=== PATIENT | female | born 1970 | race Caucasian/White ===

== ENCOUNTER 2024-02-02 19:20 | Emergency (ER) | payer MEDICAID, SELFPAY ==
[2024-02-02 19:21] VITALS: BP 138/82; PULSE 102; PULSE 104; RESP 16; RESP 21; TEMP 37.7; O2SAT 96; O2SAT 98; BMI 24.5; BMI 25.8
--- NOTE | 2024-02-02 19:24 | EKG_ITS ---
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
--- NOTE | 2024-02-02 20:01 | EDNOTE_ITS ---
ED Neck Injury Pain RME/HPI General Chief Complaint: Neck Pain/Injury Stated Complaint: LEFT SIDED NECK/SHOULDER PAIN Time Seen by Provider: 02/02/24 19:45 Arrival date/time: 02/02/24 19:20 53F with history of CAD, seizures, anxiety, RA/OA, afib, and COPD presents to ED with several days of L neck/shoulder pain after she was carrying her new at home O2 tank on her shoulder. Patient denies fall/trauma, CP, SOB, cough, weakness, dizziness, and fevers/chills. Limitations: no limitations Related Data Home Medications ?Medication ?Instructions ?Recorded ?Confirmed tiotropium bromide 18 mcg capsule 18 mcg inhalation QDAY 02/22/18 07/18/20 with inhalation device (Spiriva with HandiHaler) albuterol sulfate 2.5 mg/3 mL 2.5 mg inhalation Q12H PRN sob 07/18/20 07/18/20 (0.083 %) solution for nebulization albuterol sulfate 90 mcg/actuation 2 puff inhalation Q6H PRN sob 07/18/20 07/18/20 aerosol inhaler (Ventolin HFA) amitriptyline 150 mg tablet 150 mg PO BID 07/18/20 07/18/20 beclomethasone dipropionate 40 1 inh inhalation QDAY 07/18/20 07/18/20 mcg/actuation HFA breath activated aerosol (Qvar RediHaler) sxmraouxjg-xpsqbzpacesnl-syjhujwu 1 tab PO QDAY 07/18/20 07/18/20 50 mg-325 mg-40 mg tablet gabapentin 300 mg capsule 300 mg PO TID 07/18/20 07/18/20 levetiracetam 750 mg tablet 1,500 mg PO BID 07/18/20 07/18/20 loratadine 10 mg tablet (Allergy 10 mg PO QDAY 07/18/20 07/18/20 Relief (loratadine)) naproxen 500 mg tablet 500 mg PO QDAY PRN Pain 07/18/20 07/18/20 nicotine 21 mg/24 hr daily 21 mg topical QDAY 07/18/20 07/18/20 transdermal patch pantoprazole 40 mg tablet,delayed 40 mg PO BID 07/18/20 07/18/20 release pregabalin 75 mg capsule 75 mg PO TID 07/18/20 07/18/20 Previous Rx's ?Medication ?Instructions ?Recorded hydrocodone 5 mg-acetaminophen 325 0.5 tab PO BID #10 tabs 11/16/21 mg tablet famotidine 20 mg tablet (Pepcid) 20 mg PO QDAY #7 tabs 06/24/22 bacitracin 500 unit/gram topical 1 applic topical Q8H #14 grams 12/28/22 ointment acetaminophen 325 mg tablet (Pain 650 mg (2 x 325 mg) PO QID PRN 02/19/23 Relief (acetaminophen)) pain #20 tabs acetaminophen 500 mg tablet 500 mg PO Q6H PRN pain #30 tabs 04/19/23 (Acetaminophen Pain Relief) Allergies Allergy/AdvReac Type Severity Reaction Status Date / Time adhesive Allergy Severe Rash Verified 02/19/23 13:03 aspirin Allergy Severe Nausea Verified 04/19/23 14:12 clindamycin Allergy Severe VOMITING Verified 02/19/23 13:03 ketorolac [From Toradol] Allergy Severe Seizure Verified 04/19/23 14:12 Penicillins Allergy Severe SZ'S Verified 04/19/23 14:12 Sulfa (Sulfonamide Allergy Severe SZ Verified 02/19/23 13:03 Antibiotics) codeine AdvReac Severe VOMITING Verified 04/19/23 14:12 lorazepam AdvReac Severe SEIZURE Verified 02/19/23 13:03 sertraline AdvReac Severe SEIZURES Verified 02/19/23 13:03 Review of Systems Review of Systems Systems Reviewed: All systems reviewed, normal except as documented Constitutional Constitutional: Reports system reviewed and no additional complaints, except as documented, Denies fever(s) and Denies headache(s) ENT Ears, Nose, Mouth, and Throat: Denies disequilibrium, Denies headache(s) and Reports neck pain Cardiovascular Cardiovascular: Reports system reviewed and no additional complaints, except as documented, Denies chest pain and Denies dyspnea Respiratory Respiratory: Reports system reviewed and no additional complaints, except as documented, Denies cough and Denies dyspnea Gastrointestinal Gastrointestinal: Reports system reviewed and no additional complaints, except as documented, Denies abdominal pain, Denies nausea and Denies vomiting Musculoskeletal Musculoskeletal: Reports as per HPI, Reports arthralgias and Reports neck pain Neurologic Neurologic: Reports system reviewed and no additional complaints, except as documented, Denies confusion, Denies disequilibrium and Denies headache(s) Psychiatric Psychiatric: Denies confusion Past Medical History Past Medical History NEUROLOGIC: Positive Neurological Disorders, Seizures, Head Trauma and Traumatic Brain Injury CARDIAC: Positive Cardiac Disorders, Myocardial Infarction and Atrial Fibrillation; Negative Congestive Heart Failure RESPIRATORY: Positive Chronic Obstructive Pulmonary Disease (COPD), Asthma and Emphysema GASTROINTESTINAL: Positive Gastrointestinal Disorders, Gastrointestinal Bleed and Hiatal Hernia GENITOURINARY: Negative Renal Disease MUSCULOSKELETAL: Positive Musculoskeletal Disorders ENT: Positive Head Trauma ENDOCRINE: Negative Diabetes Mellitus Type 1 or Diabetes Mellitus Type 2 HEMATOLOGIC: Negative Sickle Cell Disease PSYCHO/SOCIAL: Positive Anxiety Social History SMOKING STATUS: Current some day smoker SUBSTANCE USE: does not use ED Exam General Limitations: Present no limitations General appearance: Present alert and in no apparent distress Head Head exam: Present atraumatic Eye Eye exam: Present normal appearance, PERRL and EOMI ENT ENT exam: Present normal exam, normal oropharynx and mucous membranes moist Neck Neck exam: Present normal inspection, full ROM and trachea midline Chest Chest inspection: Present normal inspection and symmetric chest wall rise Respiratory Respiratory exam: Present normal lung sounds bilaterally Cardiovascular Cardiovascular exam: Present regular rate, normal rhythm and normal heart sounds Abdominal Exam Abdominal exam: Present soft and normal bowel sounds Extremities Exam Extremities exam: Present normal inspection and full ROM Back Exam Back exam: Present normal inspection and full ROM Neurological Exam Neurological exam: Present alert, oriented X3 and CN II-XII intact Psychiatric Psychiatric exam: Present normal affect and normal mood Skin Skin exam: Present warm, dry, intact and normal color Course Quality Measures none Orders Category Date Time Status EKG (ED ONLY) *Do not use* NOW Care 02/02/24 19:24 Completed EKG (ED Only) Stat Exams 02/02/24 19:24 Draft HYDROcodone*/APAP 7.5/325 [[place] 7.5/325] Med 02/02/24 19:47 Discontinued 1 tab PO X1 ONE Vital Signs Vital signs: Vital Signs Temperature 99.8 F 02/02/24 19:21 Pulse Rate 102 H 02/02/24 19:21 Respiratory Rate 16 02/02/24 19:21 Blood Pressure 138/82 H 02/02/24 19:21 Pulse Oximetry (%) 98 02/02/24 19:21 Oxygen Delivery Method Room Air 02/02/24 19:21 O2 at 98% on RA and WNLs Neck Pain MDM Narrative MDM Narrative:: 53F with history of CAD, seizures, anxiety, RA/OA, afib, and COPD presents to ED with several days of L neck/shoulder pain after she was carrying her new at home O2 tank on her shoulder. Patient denies fall/trauma, CP, SOB, cough, weakness, dizziness, and fevers/chills. Physical exam reveals no L shoulder/neck tenderness. ROM intact, but painful. Clear ENT and lungs. RRR. Patient is afebrile, calm, and alert. EKG is NSR. Likely MSK-related. Meds and director counseling bureau given. Patient data External records reviewed:: [facility] previous records Clinical information provided by:: patient Social determinants that could affect healthcare access:: mental health Patient has the following chronic illnesses:: CAD, seizures, anxiety, RA/OA, afib, and COPD How is presenting disease/condition affected by chronic disease/condition?: exacerbated by Evaluation data The following diagnostics were reviewed and interpreted by me:: EKG tracing(s) Lab and/or radiology exams considered but not ordered:: ordered Interpretation Summary: above Medications / Prescriptions Medications or Prescriptions considered but not ordered:: ordered Medication administrations:: Medication Administration History Discontinued Medications Hydrocodone Bitart/Acetaminophen (Hydrocodone/Apap 7.5/325 Tablet) 1 tab PO X1 ONE Stop: 02/02/24 19:48 Last Admin: 02/02/24 20:07 Dose: 1 tab Documented By: above Consultations Consultation(s) initiated? (list below): No Diagnosis Neck Differential Diagnosis: disc disorder of cervical region, whiplash injury to neck, closed subluxation of cervical spine, fracture of cervical spine without lesion of spinal cord, cervical radiculopathy, vertebral artery dissection, torticollis, cervical spondylosis, strain of neck muscle and other (joint pain ) Most likely diagnosis given after review of the tests above:: joint pain Admission Indicated Admission indicated?: not indicated Admission Request Was there a request for admission?: No Disposition Plan Disposition Plan: Discharge Discharge Attestation Discharge Attestation: The patient and all family members were given an opportunity to ask questions and understood the discharge instructions. Discharge instructions specifically effects, indications for sooner follow up or return to the emergency department, and the expected course of current diagnosis. Patient condition: Stable Discharge Plan Plan Patient Disposition: HOME (Self Care) Disposition Comment: Stable Prescriptions/Referrals Prescriptions/Med Rec: No Action Spiriva with HandiHaler 18 mcg Capsule, W/Inhalation Device 18 mcg INHALATION QDAY albuterol sulfate 2.5 mg /3 mL (0.083 %) solution for nebulization 2.5 mg inhalation Q12H PRN (Reason: sob) amitriptyline 150 mg tablet 150 mg PO BID tzklofhybd-mtlpdcawzlxpt-qrtm 50-325-40 mg tablet 1 tab PO QDAY pantoprazole 40 mg tablet,delayed release (DR/EC) 40 mg PO BID nicotine 21 mg/24 hr patch 24 hour 21 mg TOPICAL QDAY gabapentin 300 mg capsule 300 mg PO TID levetiracetam 750 mg tablet 1,500 mg PO BID albuterol sulfate [Ventolin HFA] 90 mcg/actuation Hfa Aerosol Inhaler 2 puff INHALATION Q6H PRN (Reason: sob) loratadine [Allergy Relief (loratadine)] 10 mg tablet 10 mg PO QDAY naproxen 500 mg tablet 500 mg PO QDAY PRN (Reason: Pain) pregabalin 75 mg capsule 75 mg PO TID Qvar RediHaler 40 mcg/actuation HFA aerosol breath activated 1 inh inhalation QDAY famotidine [Pepcid] 20 mg tablet 20 mg PO QDAY Qty: 7 0RF bacitracin 500 unit/gram ointment 1 applic topical Q8H Qty: 14 0RF hydrocodone-acetaminophen 5-325 mg tablet 0.5 tab PO BID MDD 1 Qty: 10 0RF acetaminophen [Pain Relief (acetaminophen)] 325 mg tablet 650 mg PO QID PRN (Reason: pain) Qty: 20 0RF acetaminophen [Acetaminophen Pain Relief] 500 mg tablet 500 mg PO Q6H PRN (Reason: pain) Qty: 30 0RF Problem List Clinical Impression: Joint pain Patient/Caregiver Discharge Instructions Education Materials: ED Arthralgia, ED RICE Additional Instructions: Please follow-up with PCP within 24-48 hours and return immediately if symptoms worsen. If problem persists, recommend outpatient PT and/or MRI follow-up. In the meantime, rest, use ice/heat, and/or compression. Print Language: Ukrainian Stand Alone Forms: Patient Portal Info Letter PA/LAWANDA Supervising Physician HIRO/LAWANDA Supervising Physician: Dr. Traore
[2024-02-02] MEDS: HYDROcodone/APAP 7.5/325 TABLET 1 TAB PO (20:07)
== END 2024-02-02 20:12 | disposition home or self-care (01) ==
LOC: SERX 20:16
PROVIDERS: Emergency Provider Emergency Medicine; PCP Nurse Practitioner
DX: M25.512 Pain in left shoulder (principal); I45.10 Unspecified right bundle-branch block
CPT/HCPCS: 93005; 99283; A9270

== ENCOUNTER 2024-03-01 09:48 | Emergency (ER) | payer MEDICAID, SELFPAY ==
[2024-03-01 09:51] VITALS: BP 146/78; PULSE 76; RESP 18; TEMP 37; O2SAT 98; BMI 24.4
[2024-03-01 09:54] VITALS: PULSE 72; RESP 20; O2SAT 94
--- NOTE | 2024-03-01 10:00 | XR_ITS ---
Examination: PA lateral chest 2 views TECHNIQUE: Upright PA lateral chest 2 views Exam date and time: March 01, 2024 1012 hours INDICATIONS: Chest pain numbness and paresthesias in the left arm today. FINDINGS: Normal heart size Lungs are clear. The osseous structures are intact IMPRESSION: No active disease
--- NOTE | 2024-03-01 10:00 | EKG_ITS ---
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
--- NOTE | 2024-03-01 10:23 | XR_ITS ---
Examination: CT brain head without contrast. 2-D sagittal coronal reconstructions Date and time of exam:March 01, 2024 at 1047 hours Comparison May 28, 2023 INDICATIONS: Onset severe head pain today CTDI: vol (mGy):46.9 DLP: (mGycm):957 Technique: Multiple CT axial sections of the brain have been obtained, 5 mm slice thickness. Contrast has not been administered. 2-D sagittal, coronal reconstructions have been obtained Low dose protocols were performed. One or more of the following dose reduction techniques were used; automated exposure control, adjustment of the mA and/or KV according to patient size, use of iterative reconstruction technique. Findings: No significant ventricular enlargement. Intra-axial or extra-axial hemorrhage density is not seen. No mass effect or midline shift Basal cisterns are not remarkable. Fourth ventricle is midline. Cranial vault intact. Impression: Negative for acute hemorrhage, mass effect or midline shift As clinically warranted, consider brain MRI follow-up
--- NOTE | 2024-03-01 10:23 | PD.EDRME ---
Rapid Medical Screening Exam RME Arrival date/time: 03/01/24 09:48 53-year-old female presents emergency department with complaint of headache, dizziness, chest pain Chief Complaint: Chest Pain Vital signs: Vital Signs Temperature 98.6 F 03/01/24 09:51 Pulse Rate 76 03/01/24 09:51 Respiratory Rate 18 03/01/24 09:51 Blood Pressure 146/78 H 03/01/24 09:51 Pulse Oximetry (%) 98 03/01/24 09:51 Oxygen Delivery Method Room Air 03/01/24 09:51
[2024-03-01 11:27] LABS: Basophils # (Auto) 0.1 Thou/mm3 (0.0-0.2); Basophils % (Auto) 1 % (0-2.5); Eosinophils # (Auto) 0.2 Thou/mm3 (0.0-0.5); Eosinophils % (Auto) 2 % (0-10); Hemoglobin 14.7 g/dL (12.0-16.0); Immature Granulocytes % (Auto) 0 % (0-0); Immature Granulocytes Auto 0.03 Thou/mm3 (0.00-0.00); Lymphocytes % (Auto) 39 % (10-50); Mean Corpuscular HGB Conc 34.2 g/dl (31.0-37.0); Mean Corpuscular Hemoglobin 30.5 pg (25.0-35.0); Mean Corpuscular Volume 89 fL (80-100); Monocytes # (Auto) 0.9 Thou/mm3 (0.0-0.8); Monocytes % (Auto) 8 % (0-12); Neutrophils # (Auto) 5.1 Thou/mm3 (1.8-7.7); Neutrophils % (Auto) 50 % (37-80); Nucleated Red Blood Cell % 0 /100 WBC (0); Platelet Count 275 Thou/mm3 (140-440); RDW Standard Deviation 42.9 fL (36.4-46.3); Red Blood Count 4.82 Miln/mm3 (4.00-5.20); White Blood Count 10.2 Thou/mm3 (3.6-11.0)
[2024-03-01 11:35] LABS: Partial Thromboplastin Time 25.8 Seconds (22.0-36.0); Prothrombin Time 10.8 Seconds (9.0-12.2)
[2024-03-01 11:40] LABS: B-Type Natriuretic Peptide 25 pg/mL (0-100)
[2024-03-01 11:43] LABS: Alanine Aminotransferase 14 U/L (10-49); Albumin, Serum 5.1 gm/dL (3.5-5.0); Albumin/Globulin Ratio 1.8 (1.2-2.2); Alkaline Phosphatase 103 U/L (46-116); Anion Gap 8 (7-16); Aspartate Amino Transferase 18 U/L (0-34); BUN/Creatinine Ratio 13 Ratio (12-20); Bilirubin,Total 0.4 mg/dL (0.3-1.2); Blood Urea Nitrogen 9 mg/dL (9-23); Chloride 106 mMol/L (98-107); Creatinine (Component) 0.7 mg/dL (0.6-1.3); Estimated Creatinine Clearance 92.5 mL/min (>60); Globulin 2.9 gm/dL (2.3-3.5); Glucose 100 mg/dL (74-106); Magnesium 1.8 mg/dL (1.6-2.6); Osmolality,Calculated 279 (275-295); Potassium 4.1 mMol/L (3.4-5.1); Sodium 141 mMol/L (136-145); Troponin I < 0.002 ng/mL (0.0-0.045); eGFR > 60 See Note
[2024-03-01 12:30] VITALS: BP 113/76; PULSE 53; RESP 16; TEMP 36.7; O2SAT 98
--- NOTE | 2024-03-01 12:40 | PD.EDCHEST ---
ED Chest Pain RME/HPI General Chief Complaint: Chest Pain Stated Complaint: chest pain , numbness/tingling left arm x1 day Time Seen by Provider: 03/01/24 12:30 Arrival date/time: 03/01/24 09:48 RME / HPI RME / HPI narrative: 53-year-old female patient with significant history of anxiety, came in for evaluation regarding left sided chest pain radiating to the left arm with numbness and tingling sensation, it happened yesterday, lasting for several minutes. Patient went to PCP, and was advised to come to emergency room to rule out ACS. According to the patient today there was no recurrence of symptoms. Patient is denying any headache denying any dizziness denies any complaints. Patient is ambulatory. Related Data Home Medications ?Medication ?Instructions ?Recorded ?Confirmed tiotropium bromide 18 mcg capsule 18 mcg inhalation QDAY 02/22/18 07/18/20 with inhalation device (Spiriva with HandiHaler) albuterol sulfate 2.5 mg/3 mL 2.5 mg inhalation Q12H PRN sob 07/18/20 07/18/20 (0.083 %) solution for nebulization albuterol sulfate 90 mcg/actuation 2 puff inhalation Q6H PRN sob 07/18/20 07/18/20 aerosol inhaler (Ventolin HFA) amitriptyline 150 mg tablet 150 mg PO BID 07/18/20 07/18/20 beclomethasone dipropionate 40 1 inh inhalation QDAY 07/18/20 07/18/20 mcg/actuation HFA breath activated aerosol (Qvar RediHaler) noyftgdrzd-evljhleavglnf-eyexbxmy 1 tab PO QDAY 07/18/20 07/18/20 50 mg-325 mg-40 mg tablet gabapentin 300 mg capsule 300 mg PO TID 07/18/20 07/18/20 levetiracetam 750 mg tablet 1,500 mg PO BID 07/18/20 07/18/20 loratadine 10 mg tablet (Allergy 10 mg PO QDAY 07/18/20 07/18/20 Relief (loratadine)) naproxen 500 mg tablet 500 mg PO QDAY PRN Pain 07/18/20 07/18/20 nicotine 21 mg/24 hr daily 21 mg topical QDAY 07/18/20 07/18/20 transdermal patch pantoprazole 40 mg tablet,delayed 40 mg PO BID 07/18/20 07/18/20 release pregabalin 75 mg capsule 75 mg PO TID 07/18/20 07/18/20 Previous Rx's ?Medication ?Instructions ?Recorded hydrocodone 5 mg-acetaminophen 325 0.5 tab PO BID #10 tabs 11/16/21 mg tablet famotidine 20 mg tablet (Pepcid) 20 mg PO QDAY #7 tabs 06/24/22 bacitracin 500 unit/gram topical 1 applic topical Q8H #14 grams 12/28/22 ointment acetaminophen 325 mg tablet (Pain 650 mg (2 x 325 mg) PO QID PRN 02/19/23 Relief (acetaminophen)) pain #20 tabs acetaminophen 500 mg tablet 500 mg PO Q6H PRN pain #30 tabs 04/19/23 (Acetaminophen Pain Relief) Allergies Allergy/AdvReac Type Severity Reaction Status Date / Time clindamycin Allergy Severe VOMITING Verified 03/01/24 09:51 Penicillins Allergy Severe SZ'S Verified 03/01/24 09:51 Sulfa (Sulfonamide Allergy Severe SZ Verified 03/01/24 09:51 Antibiotics) codeine AdvReac Severe VOMITING Verified 03/01/24 09:51 lorazepam AdvReac Severe SEIZURE Verified 03/01/24 09:51 sertraline AdvReac Severe SEIZURES Verified 03/01/24 09:51 Review of Systems Review of Systems Narrative Review of Systems: Review of system reviewed and within normal limits except mentioned in HPI ED Exam Narrative Physical exam: VITAL SIGNS: Reviewed. GENERAL APPEARANCE: Alert and interactive, follows commands, no acute distress, HEAD AND FACE: Non-traumatic. ENT: PERRL, pink conjunctivitis, eyelid no trauma, Mucous membrane moist. NECK: Supple, nontender, no nuchal rigidity. CHEST: No tenderness, no crepitus, no paradoxical movement, no retractions. LUNGS: Clear, well ventilated, symmetric, no rales, no wheezing, no ronchi, no stridor, good breath sounds bilaterally. HEART: Regular rate, regular rhythm, no murmur, no gallops. ABDOMEN: Soft, positive bowel sounds, nondistended, no guarding, nontender, no rebound, no masses, RECTAL: Deferred. GENITAL: Deferred. NEUROLOGICAL: Gross motor function intact sensory function intact, Appropriate for age. MUSCULOSKELETAL: low back nontender, full range of motion. EXTREMITIES: Nontender, full range of motion. SKIN: Color pink, dry, no rash, no lacerations, no abrasions, no contusions. LYMPHATICS: Deferred. Course Quality Measures none Orders Category Date Time Status EKG (ED ONLY) *Do not use* NOW Care 03/01/24 10:[address] head/brain wo con Stat Exams 03/01/24 10:23 Completed EKG (ED Only) Stat Exams 03/01/24 10:00 Draft XR chest 2V Stat Exams 03/01/24 10:00 Completed B-Type Natriuretic Peptide Stat Lab 03/01/24 10:58 Completed CBC Stat Lab 03/01/24 10:58 Completed Comprehensive Metabolic Panel Stat Lab 03/01/24 10:58 Completed Magnesium Stat Lab 03/01/24 10:58 Completed Partial Thromboplastin Time Stat Lab 03/01/24 10:58 Completed Prothrombin Time with INR Stat Lab 03/01/24 10:58 Completed Troponin I Stat Lab 03/01/24 10:58 Completed Vital Signs Vital signs: Vital Signs Temperature 98.6 F 03/01/24 09:51 Pulse Rate 76 03/01/24 09:51 Respiratory Rate 18 03/01/24 09:51 Blood Pressure 146/78 H 03/01/24 09:51 Pulse Oximetry (%) 98 03/01/24 09:51 Oxygen Delivery Method Room Air 03/01/24 09:51 Chest Pain MDM Narrative MDM Narrative:: 53-year-old female patient with significant history of anxiety, came in for evaluation regarding left sided chest pain radiating to the left arm with numbness and tingling sensation, it happened yesterday, lasting for several minutes. Patient went to PCP, and was advised to come to emergency room to rule out ACS. According to the patient today there was no recurrence of symptoms. Patient is denying any headache denying any dizziness denies any complaints. Patient is ambulatory. Patient's cardiac workup including troponin normal. EKG as interpreted by me showed sinus rhythm, ventricular rate of 64 bpm, no ST segment elevation or depression noted. CT scan of the head came back normal. Results discussed with the patient. There is no recurrence of patient's symptoms today. Repeat troponin or workup is not needed at this time. Patient is probably having anxiety-like symptoms. Patient data External records reviewed:: None Clinical information provided by:: patient Social determinants that could affect healthcare access:: none Patient has the following chronic illnesses:: Although pt's initial presentation was concerning, Pt now reports feeling better after Ativan and has an unremarkable vital signs. Stable for D/C. Hydroxyzine given as needed How is presenting disease/condition affected by chronic disease/condition?: exacerbated by Evaluation data The following diagnostics were reviewed and interpreted by me:: lab results, radiology exam(s) and EKG tracing(s) Lab and/or radiology exams considered but not ordered:: None Interpretation Summary: EKG as interpreted by me shows sinus rhythm, ventricular rate of 64 bpm, no ST segment elevation depression noted. CT scan of the head came back unremarkable. Laboratory workup including troponin also normal. Medications / Prescriptions Medications or Prescriptions considered but not ordered:: None Medication administrations:: None Consultations Consultation(s) initiated? (list below): No Diagnosis Chest Pain Differential Diagnosis: pneumothorax, atypical chest pain and other (anxiety) Most likely diagnosis given after review of the tests above:: Anxiety, noncardiac chest pain Admission Indicated Admission indicated?: not indicated Explain why admission is indicated or not indicated:: None Admission Request Was there a request for admission?: No Disposition Plan Disposition Plan: Discharge Discharge Attestation Discharge Attestation: The patient was given an opportunity to ask questions and understood the discharge instructions. Discharge instructions specifically effects, indications for sooner follow up or return to the emergency department, and the expected course of current diagnosis. Patient condition: Stable Discharge Plan Plan Patient Disposition: HOME (Self Care) Disposition Comment: Stable Prescriptions/Referrals Prescriptions/Med Rec: No Action Spiriva with HandiHaler 18 mcg Capsule, W/Inhalation Device 18 mcg INHALATION QDAY albuterol sulfate 2.5 mg /3 mL (0.083 %) solution for nebulization 2.5 mg inhalation Q12H PRN (Reason: sob) amitriptyline 150 mg tablet 150 mg PO BID axojbvppke-ztelskvezqpqs-diyl 50-325-40 mg tablet 1 tab PO QDAY pantoprazole 40 mg tablet,delayed release (DR/EC) 40 mg PO BID nicotine 21 mg/24 hr patch 24 hour 21 mg TOPICAL QDAY gabapentin 300 mg capsule 300 mg PO TID levetiracetam 750 mg tablet 1,500 mg PO BID albuterol sulfate [Ventolin HFA] 90 mcg/actuation Hfa Aerosol Inhaler 2 puff INHALATION Q6H PRN (Reason: sob) loratadine [Allergy Relief (loratadine)] 10 mg tablet 10 mg PO QDAY naproxen 500 mg tablet 500 mg PO QDAY PRN (Reason: Pain) pregabalin 75 mg capsule 75 mg PO TID Qvar RediHaler 40 mcg/actuation HFA aerosol breath activated 1 inh inhalation QDAY famotidine [Pepcid] 20 mg tablet 20 mg PO QDAY Qty: 7 0RF bacitracin 500 unit/gram ointment 1 applic topical Q8H Qty: 14 0RF hydrocodone-acetaminophen 5-325 mg tablet 0.5 tab PO BID MDD 1 Qty: 10 0RF acetaminophen [Pain Relief (acetaminophen)] 325 mg tablet 650 mg PO QID PRN (Reason: pain) Qty: 20 0RF acetaminophen [Acetaminophen Pain Relief] 500 mg tablet 500 mg PO Q6H PRN (Reason: pain) Qty: 30 0RF Referrals: Mariola David FNP [Primary Care Provider] - In 1 week Problem List Clinical Impression: Anxiety, Non-cardiac chest pain Patient/Caregiver Discharge Instructions Discharge Activity: activity as tolerated Education Materials: ED Anxiety Reaction, ED Chest Pain, Noncardiac Additional Instructions: Thank you for the opportunity for serving you today. You are stable for discharged . You are advised to: Follow-up with your PCP in 1 to 2 days Return to ED for worsening of symptoms Print Language: Romansh Stand Alone Forms: Bia Award Info., Patient Portal Info Letter KATHY Supervising Physician KATHY Supervising Physician: MD Addis
[2024-03-01 12:53] LABS: Band Neutrophils (Manual) 1 % (0-6); Basophils (Manual) 1 % (0-2); Eosinophils (Manual) 1 % (0-4); Lymphocytes (Manual) 41 % (20-44); Monocytes (Manual) 5 % (2-9); Neutrophils (Manual) 51 % (50-70)
== END 2024-03-01 13:09 | disposition home or self-care (01) ==
PROVIDERS: Nurse Practitioner Primary Care; Emergency Provider Emergency Medicine; PCP Nurse Practitioner
DX: R07.89 Other chest pain (principal); F41.9 Anxiety disorder, unspecified
CPT/HCPCS: 36415; 70450; 71046; 80053; 83735; 83880; 84484; 85025; 85610; 85730; 93005; 99283

== ENCOUNTER 2024-04-26 15:41 | Emergency (ER) | payer MEDICAID, SELFPAY ==
[2024-04-26 15:57] VITALS: BP 128/68; PULSE 84; RESP 20; TEMP 37; O2SAT 97; BMI 22.3
--- NOTE | 2024-04-26 16:17 | PD.EDADULT ---
ED General RME/HPI General Chief complaint: General Adult/Misc Complain Stated complaint: BOIL/CYST UPPER INNER ASPECT OF R) THIGH Time Seen by Provider: 04/26/24 16:16 Arrival date/time: 04/26/24 15:41 54-year-old female presents to the emergency department today complaints of boil right upper leg patient for symptoms ongoing x 1 day patient ports no fever nausea or vomiting Limitations: no limitations Related Data Home Medications ?Medication ?Instructions ?Recorded ?Confirmed tiotropium bromide 18 mcg capsule 18 mcg inhalation QDAY 02/22/18 07/18/20 with inhalation device (Spiriva with HandiHaler) albuterol sulfate 2.5 mg/3 mL 2.5 mg inhalation Q12H PRN sob 07/18/20 07/18/20 (0.083 %) solution for nebulization albuterol sulfate 90 mcg/actuation 2 puff inhalation Q6H PRN sob 07/18/20 07/18/20 aerosol inhaler (Ventolin HFA) amitriptyline 150 mg tablet 150 mg PO BID 07/18/20 07/18/20 beclomethasone dipropionate 40 1 inh inhalation QDAY 07/18/20 07/18/20 mcg/actuation HFA breath activated aerosol (Qvar RediHaler) pzervxpqdx-pfbjlbpuhsfnb-tjncgjaj 1 tab PO QDAY 07/18/20 07/18/20 50 mg-325 mg-40 mg tablet gabapentin 300 mg capsule 300 mg PO TID 07/18/20 07/18/20 levetiracetam 750 mg tablet 1,500 mg PO BID 07/18/20 07/18/20 loratadine 10 mg tablet (Allergy 10 mg PO QDAY 07/18/20 07/18/20 Relief (loratadine)) naproxen 500 mg tablet 500 mg PO QDAY PRN Pain 07/18/20 07/18/20 nicotine 21 mg/24 hr daily 21 mg topical QDAY 07/18/20 07/18/20 transdermal patch pantoprazole 40 mg tablet,delayed 40 mg PO BID 07/18/20 07/18/20 release pregabalin 75 mg capsule 75 mg PO TID 07/18/20 07/18/20 Previous Rx's ?Medication ?Instructions ?Recorded hydrocodone 5 mg-acetaminophen 325 0.5 tab PO BID #10 tabs 11/16/21 mg tablet famotidine 20 mg tablet (Pepcid) 20 mg PO QDAY #7 tabs 06/24/22 bacitracin 500 unit/gram topical 1 applic topical Q8H #14 grams 12/28/22 ointment acetaminophen 325 mg tablet (Pain 650 mg (2 x 325 mg) PO QID PRN 02/19/23 Relief (acetaminophen)) pain #20 tabs acetaminophen 500 mg tablet 500 mg PO Q6H PRN pain #30 tabs 04/19/23 (Acetaminophen Pain Relief) doxycycline hyclate 100 mg capsule 100 mg PO BID 7 days #14 caps 04/26/24 ibuprofen 600 mg tablet 600 mg PO Q6H #30 tabs 04/26/24 Allergies Allergy/AdvReac Type Severity Reaction Status Date / Time clindamycin Allergy Severe VOMITING Verified 04/26/24 15:45 Penicillins Allergy Severe SZ'S Verified 04/26/24 15:45 Sulfa (Sulfonamide Allergy Severe SZ Verified 04/26/24 15:45 Antibiotics) codeine AdvReac Severe VOMITING Verified 04/26/24 15:45 lorazepam AdvReac Severe SEIZURE Verified 04/26/24 15:45 sertraline AdvReac Severe SEIZURES Verified 04/26/24 15:45 Review of Systems Review of Systems Systems Reviewed: All systems reviewed, normal except as documented Constitutional Constitutional: Reports system reviewed and no additional complaints, except as documented, Denies fever(s) and Denies headache(s) Eyes Eyes: Reports system reviewed and no additional complaints, except as documented and Denies blurry vision ENT Ears, Nose, Mouth, and Throat: Reports system reviewed and no additional complaints, except as documented, Denies headache(s), Denies nasal congestion and Denies nasal discharge Cardiovascular Cardiovascular: Reports system reviewed and no additional complaints, except as documented, Denies chest pain and Denies dyspnea Respiratory Respiratory: Reports system reviewed and no additional complaints, except as documented, Denies chest congestion, Denies cough and Denies dyspnea Gastrointestinal Gastrointestinal: Reports system reviewed and no additional complaints, except as documented and Denies abdominal pain Integumentary/Breasts Skin/Breast: Reports system reviewed and no additional complaints, except as documented, Denies rash and Reports other (Abscess right upper leg) Neurologic Neurologic: Reports system reviewed and no additional complaints, except as documented, Reports as per HPI and Denies headache(s) Past Medical History Past Medical History NEUROLOGIC: Positive Neurological Disorders, Seizures, Head Trauma and Traumatic Brain Injury CARDIAC: Positive Cardiac Disorders, Myocardial Infarction and Atrial Fibrillation; Negative Congestive Heart Failure RESPIRATORY: Positive Chronic Obstructive Pulmonary Disease (COPD), Asthma and Emphysema GASTROINTESTINAL: Positive Gastrointestinal Disorders, Gastrointestinal Bleed and Hiatal Hernia GENITOURINARY: Negative Renal Disease MUSCULOSKELETAL: Positive Musculoskeletal Disorders ENT: Positive Head Trauma ENDOCRINE: Negative Diabetes Mellitus Type 1 or Diabetes Mellitus Type 2 HEMATOLOGIC: Negative Sickle Cell Disease PSYCHO/SOCIAL: Positive Anxiety Social History SMOKING STATUS: Current every day smoker SUBSTANCE USE: does not use ED Exam General Limitations: Present no limitations General appearance: Present alert and in no apparent distress Head Head exam: Present atraumatic Eye Eye exam: Present normal appearance, PERRL and EOMI ENT ENT exam: Present normal exam, normal oropharynx and mucous membranes moist Neck Neck exam: Present normal inspection, full ROM and trachea midline Chest Chest inspection: Present normal inspection and symmetric chest wall rise Respiratory Respiratory exam: Present normal lung sounds bilaterally Cardiovascular Cardiovascular exam: Present regular rate, normal rhythm and normal heart sounds Abdominal Exam Abdominal exam: Present soft and normal bowel sounds Extremities Exam Extremities exam: Present normal inspection and full ROM Back Exam Back exam: Present normal inspection and full ROM Neurological Exam Neurological exam: Present alert, oriented X3 and CN II-XII intact Psychiatric Psychiatric exam: Present normal affect and normal mood Skin Skin exam: Present warm, dry and other (Abscess right upper leg) Course Quality Measures none Vital Signs Vital signs: Vital Signs Temperature 98.6 F 04/26/24 15:57 Pulse Rate 84 04/26/24 15:57 Respiratory Rate 20 04/26/24 15:57 Blood Pressure 128/68 04/26/24 15:57 Pulse Oximetry (%) 97 04/26/24 15:57 Oxygen Delivery Method Room Air 04/26/24 15:57 O2 saturation 97% room air [facility] Patient data External records reviewed:: [facility] previous records Clinical information provided by:: patient Social determinants that could affect healthcare access:: none Patient has the following chronic illnesses:: None How is presenting disease/condition affected by chronic disease/condition?: no chronic disease Evaluation data The following diagnostics were reviewed and interpreted by me:: other (specify) (N/A) Lab and/or radiology exams considered but not ordered:: Consider not ordered Interpretation Summary: N/A Medications Medications considered but not ordered:: Given Medication administrations:: Given Consultations Consultation(s) initiated? (list below): No Diagnosis Differential Diagnosis ED Complaint MDM: Abscess, cellulitis Most likely diagnosis given after review of the tests above:: Abscess Admission Indicated Admission indicated?: not indicated Explain why admission is indicated or not indicated:: Abscess Admission Request Was there a request for admission?: No Disposition Plan Disposition Plan: Discharge Discharge Attestation Discharge Attestation: The patient and all family members were given an opportunity to ask questions and understood the discharge instructions. Discharge instructions specifically effects, indications for sooner follow up or return to the emergency department, and the expected course of current diagnosis. Patient condition: Stable Medical Decision Making MDM Narrative MDM Narrative: 54-year-old female presents to the emergency department today complaints of boil right upper leg patient for symptoms ongoing x 1 day patient ports no fever nausea or vomiting On exam patient is a small abscess which appears to be an early abscess less than 1 inch. There was discussion about I&D as a superficial and patient has no systemic symptoms patient did opt to do conservative treatment with antibiotics and to see if the symptoms improve should they not improve patient understands she will have to return for I&D Patient discharged home in no distress to follow-up with primary care doctor in the next 24 to 48 hours and for any worsening symptoms to return to the ER immediately Differential Diagnosis Differential Diagnosis: Abscess, cellulitis Medical Records Medical records reviewed: Yes I reviewed the patient's medical records. Discharge Plan Plan Patient Disposition: HOME (Self Care) Disposition Comment: Stable Prescriptions/Referrals Prescriptions/Med Rec: New doxycycline hyclate 100 mg capsule 100 mg PO BID 7 Days Qty: 14 0RF ibuprofen 600 mg tablet 600 mg PO Q6H Qty: 30 0RF No Action Spiriva with HandiHaler 18 mcg Capsule, W/Inhalation Device 18 mcg INHALATION QDAY albuterol sulfate 2.5 mg /3 mL (0.083 %) solution for nebulization 2.5 mg inhalation Q12H PRN (Reason: sob) amitriptyline 150 mg tablet 150 mg PO BID gnxydzxamt-gdusxrascqkbx-emxu 50-325-40 mg tablet 1 tab PO QDAY pantoprazole 40 mg tablet,delayed release (DR/EC) 40 mg PO BID nicotine 21 mg/24 hr patch 24 hour 21 mg TOPICAL QDAY gabapentin 300 mg capsule 300 mg PO TID levetiracetam 750 mg tablet 1,500 mg PO BID albuterol sulfate [Ventolin HFA] 90 mcg/actuation Hfa Aerosol Inhaler 2 puff INHALATION Q6H PRN (Reason: sob) loratadine [Allergy Relief (loratadine)] 10 mg tablet 10 mg PO QDAY naproxen 500 mg tablet 500 mg PO QDAY PRN (Reason: Pain) pregabalin 75 mg capsule 75 mg PO TID Qvar RediHaler 40 mcg/actuation HFA aerosol breath activated 1 inh inhalation QDAY famotidine [Pepcid] 20 mg tablet 20 mg PO QDAY Qty: 7 0RF bacitracin 500 unit/gram ointment 1 applic topical Q8H Qty: 14 0RF hydrocodone-acetaminophen 5-325 mg tablet 0.5 tab PO BID MDD 1 Qty: 10 0RF acetaminophen [Pain Relief (acetaminophen)] 325 mg tablet 650 mg PO QID PRN (Reason: pain) Qty: 20 0RF acetaminophen [Acetaminophen Pain Relief] 500 mg tablet 500 mg PO Q6H PRN (Reason: pain) Qty: 30 0RF Problem List Clinical Impression: Abscess of leg, right Patient/Caregiver Discharge Instructions Education Materials: ED Abscess Antibiotic ... Additional Instructions: Please follow up with your primary care doctor in the next 24-48hrs for any worsening symptoms return here immediately If symptoms persist or worsen you may need an I&D Print Language: Kyrgyz Stand Alone Forms: Bia Award Info., Patient Portal Info Letter PA/TANK COOPER Supervising Physician PA/TANK COOPER Supervising Physician: Dr. dunn
== END 2024-04-26 16:30 | disposition home or self-care (01) ==
LOC: SERX 16:28
PROVIDERS: Emergency Provider Family Medicine
DX: L02.415 Cutaneous abscess of right lower limb (principal)
CPT/HCPCS: 99281

== ENCOUNTER 2024-04-28 17:47 | Emergency (ER) | payer MEDICAID, SELFPAY ==
[2024-04-28 17:51] VITALS: BMI 23.8
[2024-04-28 18:58] VITALS: BP 110/71; PULSE 70; RESP 18; TEMP 36.8; O2SAT 97
--- NOTE | 2024-04-28 19:12 | EDRME_ITS ---
Rapid Medical Screening Exam [facility] Arrival date/time: 04/28/24 17:47 54F with history of COPD, seizures, and psych/drug use presents to ED with several days of worsening boil on R thigh area. Patient was here 2 days ago and given doxycycline, but patient states it made her have dizziness and N/V so she hasn't been taking it. Chief Complaint: Skin/Abscess/Foreign Body Time Seen by Provider: 04/28/24 19:05 Vital signs: Vital Signs Temperature 98.3 F 04/28/24 18:58 Pulse Rate 70 04/28/24 18:58 Respiratory Rate 18 04/28/24 18:58 Blood Pressure 110/71 04/28/24 18:58 Pulse Oximetry (%) 97 04/28/24 18:58 Oxygen Delivery Method Room Air 04/28/24 18:58
--- NOTE | 2024-04-28 19:14 | PD.EDSKIN ---
ED Skin Abcess FB-RME/HPI General Chief complaint: Skin/Abscess/Foreign Body Stated complaint: BOIL TO RIGHT GROIN Time Seen by Provider: 04/28/24 19:05 Arrival date/time: 04/28/24 17:47 RME / HPI RME / HPI narrative: 54F with history of COPD, seizures, and psych/drug use presents to ED with several days of worsening boil on R thigh area. Patient was here 2 days ago and given doxycycline, but patient states it made her have dizziness and N/V so she hasn't been taking it. Patient denies any other complaints no fever. Related Data Home Medications ?Medication ?Instructions ?Recorded ?Confirmed tiotropium bromide 18 mcg capsule 18 mcg inhalation QDAY 02/22/18 07/18/20 with inhalation device (Spiriva with HandiHaler) albuterol sulfate 2.5 mg/3 mL 2.5 mg inhalation Q12H PRN sob 07/18/20 07/18/20 (0.083 %) solution for nebulization albuterol sulfate 90 mcg/actuation 2 puff inhalation Q6H PRN sob 07/18/20 07/18/20 aerosol inhaler (Ventolin HFA) amitriptyline 150 mg tablet 150 mg PO BID 07/18/20 07/18/20 beclomethasone dipropionate 40 1 inh inhalation QDAY 07/18/20 07/18/20 mcg/actuation HFA breath activated aerosol (Qvar RediHaler) gtqghleigv-yovsrhmxcwndk-kchjxzno 1 tab PO QDAY 07/18/20 07/18/20 50 mg-325 mg-40 mg tablet gabapentin 300 mg capsule 300 mg PO TID 07/18/20 07/18/20 levetiracetam 750 mg tablet 1,500 mg PO BID 07/18/20 07/18/20 loratadine 10 mg tablet (Allergy 10 mg PO QDAY 07/18/20 07/18/20 Relief (loratadine)) naproxen 500 mg tablet 500 mg PO QDAY PRN Pain 07/18/20 07/18/20 nicotine 21 mg/24 hr daily 21 mg topical QDAY 07/18/20 07/18/20 transdermal patch pantoprazole 40 mg tablet,delayed 40 mg PO BID 07/18/20 07/18/20 release pregabalin 75 mg capsule 75 mg PO TID 07/18/20 07/18/20 Previous Rx's ?Medication ?Instructions ?Recorded hydrocodone 5 mg-acetaminophen 325 0.5 tab PO BID #10 tabs 11/16/21 mg tablet famotidine 20 mg tablet (Pepcid) 20 mg PO QDAY #7 tabs 06/24/22 bacitracin 500 unit/gram topical 1 applic topical Q8H #14 grams 12/28/22 ointment acetaminophen 325 mg tablet (Pain 650 mg (2 x 325 mg) PO QID PRN 02/19/23 Relief (acetaminophen)) pain #20 tabs acetaminophen 500 mg tablet 500 mg PO Q6H PRN pain #30 tabs 04/19/23 (Acetaminophen Pain Relief) doxycycline hyclate 100 mg capsule 100 mg PO BID 7 days #14 caps 04/26/24 ibuprofen 600 mg tablet 600 mg PO Q6H #30 tabs 04/26/24 ciprofloxacin HCl 500 mg tablet 500 mg PO BID #14 tabs 04/28/24 (Cipro) Allergies Allergy/AdvReac Type Severity Reaction Status Date / Time clindamycin Allergy Severe VOMITING Verified 04/28/24 17:50 Penicillins Allergy Severe SZ'S Verified 04/28/24 17:50 Sulfa (Sulfonamide Allergy Severe SZ Verified 04/28/24 17:50 Antibiotics) ampicillin Allergy Seizure Verified 04/28/24 17:50 doxycycline Allergy Dizziness Verified 04/28/24 17:50 codeine AdvReac Severe VOMITING Verified 04/28/24 17:50 lorazepam AdvReac Severe SEIZURE Verified 04/28/24 17:50 sertraline AdvReac Severe SEIZURES Verified 04/28/24 17:50 Review of Systems Review of Systems Narrative Review of Systems: Review of system reviewed and within normal limits except mentioned in HPI ED Exam Narrative Physical exam: VITAL SIGNS: Reviewed. GENERAL APPEARANCE: Alert and interactive, follows commands, no acute distress, HEAD AND FACE: Non-traumatic. ENT: PERRL, pink conjunctivitis, eyelid no trauma, Mucous membrane moist. NECK: Supple, nontender, no nuchal rigidity. CHEST: No tenderness, no crepitus, no paradoxical movement, no retractions. LUNGS: Clear, well ventilated, symmetric, no rales, no wheezing, no ronchi, no stridor, good breath sounds bilaterally. HEART: Regular rate, regular rhythm, no murmur, no gallops. ABDOMEN: Soft, positive bowel sounds, nondistended, no guarding, nontender, no rebound, no masses, RECTAL: Deferred. GENITAL: Deferred. NEUROLOGICAL: Gross motor function intact sensory function intact, Appropriate for age. MUSCULOSKELETAL: low back nontender, full range of motion. EXTREMITIES: 2.2 cm redness swelling right groin area fluctuant with tenderness, full range of motion. SKIN: Color pink, dry, no rash, no lacerations, no abrasions, no contusions. LYMPHATICS: Deferred. Course Quality Measures none Orders Category Date Time Status Incision and Drainage Set Up X1 Care 04/28/24 19:14 Active Ciprofloxacin HCl [Ciprofloxacin] Med 04/28/24 19:21 Once 500 mg PO X1 ONE Ibuprofen Tab [Motrin Tab] Med 04/28/24 19:20 Once 800 mg PO X1 ONE Vital Signs Vital signs: Vital Signs Temperature 98.3 F 04/28/24 18:58 Pulse Rate 70 04/28/24 18:58 Respiratory Rate 18 04/28/24 18:58 Blood Pressure 110/71 04/28/24 18:58 Pulse Oximetry (%) 97 04/28/24 18:58 Oxygen Delivery Method Room Air 04/28/24 18:58 Skin / Abscess / Foreign Body MDM Narrative MDM Narrative:: 54F with history of COPD, seizures, and psych/drug use presents to ED with several days of worsening boil on R thigh area. Patient was here 2 days ago and given doxycycline, but patient states it made her have dizziness and N/V so she hasn't been taking it. Patient denies any other complaints no fever. Imaging or workup is not needed at this time, patient's abscess is draining spontaneously. Patient will be sent home on Cipro since patient is allergic to penicillin clinda Doxy and Bactrim. Was advised to apply warm compress and squeeze the abscess daily as needed. Patient data External records reviewed:: None Clinical information provided by:: patient Social determinants that could affect healthcare access:: none Patient has the following chronic illnesses:: COPD How is presenting disease/condition affected by chronic disease/condition?: uneffected by Evaluation data The following diagnostics were reviewed and interpreted by me:: other (specify) Lab and/or radiology exams considered but not ordered:: None Interpretation Summary: None Medications / Prescriptions Medications or Prescriptions considered but not ordered:: None Medication administrations:: Cipro Consultations Consultation(s) initiated? (list below): No Diagnosis Skin/Abscess Differential Diagnosis: abscess of skin or subcutaneous tissue, cellulitis and impetigo Most likely diagnosis given after review of the tests above:: abscess groin Admission Indicated Admission indicated?: not indicated Admission Request Was there a request for admission?: No Admission Attestation Admission request attestation: Stable Disposition Plan Disposition Plan: Discharge Discharge Attestation Discharge Attestation: The patient was given an opportunity to ask questions and understood the discharge instructions. Discharge instructions specifically effects, indications for sooner follow up or return to the emergency department, and the expected course of current diagnosis. Patient condition: Stable Discharge Plan Plan Patient Disposition: HOME (Self Care) Disposition Comment: stable Prescriptions/Referrals Prescriptions/Med Rec: New ciprofloxacin HCl [Cipro] 500 mg tablet 500 mg PO BID Qty: 14 0RF No Action Spiriva with HandiHaler 18 mcg Capsule, W/Inhalation Device 18 mcg INHALATION QDAY albuterol sulfate 2.5 mg /3 mL (0.083 %) solution for nebulization 2.5 mg inhalation Q12H PRN (Reason: sob) amitriptyline 150 mg tablet 150 mg PO BID dsiudeaquf-slsqutrzuhwwq-knjn 50-325-40 mg tablet 1 tab PO QDAY pantoprazole 40 mg tablet,delayed release (DR/EC) 40 mg PO BID nicotine 21 mg/24 hr patch 24 hour 21 mg TOPICAL QDAY gabapentin 300 mg capsule 300 mg PO TID levetiracetam 750 mg tablet 1,500 mg PO BID albuterol sulfate [Ventolin HFA] 90 mcg/actuation Hfa Aerosol Inhaler 2 puff INHALATION Q6H PRN (Reason: sob) loratadine [Allergy Relief (loratadine)] 10 mg tablet 10 mg PO QDAY naproxen 500 mg tablet 500 mg PO QDAY PRN (Reason: Pain) pregabalin 75 mg capsule 75 mg PO TID Qvar RediHaler 40 mcg/actuation HFA aerosol breath activated 1 inh inhalation QDAY famotidine [Pepcid] 20 mg tablet 20 mg PO QDAY Qty: 7 0RF bacitracin 500 unit/gram ointment 1 applic topical Q8H Qty: 14 0RF hydrocodone-acetaminophen 5-325 mg tablet 0.5 tab PO BID MDD 1 Qty: 10 0RF acetaminophen [Pain Relief (acetaminophen)] 325 mg tablet 650 mg PO QID PRN (Reason: pain) Qty: 20 0RF acetaminophen [Acetaminophen Pain Relief] 500 mg tablet 500 mg PO Q6H PRN (Reason: pain) Qty: 30 0RF doxycycline hyclate 100 mg capsule 100 mg PO BID 7 Days Qty: 14 0RF ibuprofen 600 mg tablet 600 mg PO Q6H Qty: 30 0RF Problem List Clinical Impression: Abscess of leg, right Patient/Caregiver Discharge Instructions Education Materials: ED Abscess Antibiotic ... Additional Instructions: Thank you for the opportunity for serving you today. You are stable for discharged . You are advised to: Follow-up with your PCP in 1 to 2 days Return to ED for worsening of symptoms Increase oral fluids Take medication as prescribed Apply warm compress return to the ED as needed and squeeze the abscess As needed Print Language: Frisian Stand Alone Forms: Bia Award Info., Patient Portal Info Letter HIRO/LAWANAD Supervising Physician HIRO/LAWANDA Supervising Physician: MD Eugenie
[2024-04-28] MEDS: IBUPROFEN TAB 400 MG TABLET 800 MG PO (19:36)
[2024-04-28] MEDS: cephALEXin 250 MG CAPSULE 500 MG PO (19:37)
== END 2024-04-28 20:05 | disposition home or self-care (01) ==
PROVIDERS: Emergency Provider Emergency Medicine
DX: L02.415 Cutaneous abscess of right lower limb (principal); J44.9 Chronic obstructive pulmonary disease, unspecified; R42 Dizziness and giddiness
CPT/HCPCS: 99282; A9270

== ENCOUNTER 2024-05-25 17:27 | Emergency (ER) | payer MEDICAID, SELFPAY ==
[2024-05-25 17:29] VITALS: BMI 24.4
--- NOTE | 2024-05-25 17:57 | PC.NURSE ---
AT APPROX 1750 PT WAS CONTACTED OUTSIDE THE ER SITTING ON THE FLOOR AND LEANING ON THE WALL, PT WAS OFFER TO SIT ON A WHEEL CHAIR IN WHICH I HAD IN FRONT OF HER AND SHE STATED, I DONT WANT A WHEEL CHAIR..NO! PT WAS OFFER HELP TO SIT ON THE WHEEL CHAIR AND STILL REFUSED. PT WAS A&O X4 GCS 15. ONCE I CAME BACK INTO THE ER, I WAS MADE AWARE BY [employer] JUDIE THAT THIS PT CALLED REPORTING THAT THIS PT FELL OUTSIDE. I ONCE AGAIN MADE CONTACT WITH THIS PT OUTSIDE (KRISTOFER SOLORZANO WITH ME), BUT THIS TIME PT WAS WALKING TOWARDS THE LIGHT POOL THAT IS IN FROM OF THE ER WITH A CIGARET IN HER MOUTH AND WAS OFFER A WHEEL CHAIR BUT REFUSE. CHARGE NURSE MADE AWARE.
--- NOTE | 2024-05-25 18:53 | PC.LAC ---
CALLED PT BACK, NO ANSWER AT THIS TIME
--- NOTE | 2024-05-25 19:15 | PD.EDADDENDU ---
Emergency Room Addendum Addendum Narrative: When I looked for the patient, I was told she eloped. Ryder Traore MD
--- NOTE | 2024-05-25 20:20 | PC.NURSE ---
PATIENT WALKED UP TO TRIAGE DESK REQUESTING TO SPEAK WITH STOVE MECHANIC. PATIENT STATING THAT SHE HAS BEEN HERE FOR HOURS AND HAS NOT BEEN CALLED BACK. THIS NURSE ATTEMPTED TO EXPLAIN TO PATIENT THAT STAFF REPORTED THAT SHE WAS CALLED AND THAT PATIENT DID NOT ANSWER. PATIENT STATED I'VE HAD A SEIZURE SINCE I'VE BEEN HERE AND NO ONE HAS CHECKED ON ME, AND BEGAN WALKING AWAY. THIS NURSE ATTEMPTED TO INFORM PATIENT THAT SHE WOULD BE CALLED NEXT FOR VITALS AND TO SEEN BY THE PROVIDER BUT PATIENT WALKED AWAY BEFORE NURSE WAS ABLE TO EXPLAIN. STOVE MECHANIC WAS MADE AWARE AND WILL COME TO SPEAK WITH PATIENT.
[2024-05-25 20:22] VITALS: BP 143/80; PULSE 88; RESP 18; TEMP 36.6; O2SAT 97
--- NOTE | 2024-05-25 20:25 | PC.NURSE ---
Patient requested to talked to me regarding her complaints. She is in RME 1. Patient stated that she passed out and had a seizure in the ED lobby area and nobody seen it.Stated that she have hx of seizure. Also, she complaint that the demographic analyst was not verbally kind. Apologized and explained the situation but unable to console her. She refused to see our ED doctor and stated that she wants to leave. Patient just left without signing any papers and said that she will go her PCP and will not come back. Patient able to walk without difficulty and other distress noted.
--- NOTE | 2024-05-25 20:32 | PC.NURSE ---
pt was brought into [facility] to be seen by provider and stated how angry she was that no one had called her and the the [facility] nurse was being rude to her, this director underwriter sales apologized for her experience AND AT THAT TIME DR JIMÉNEZ CAME IN TO SEE PT. PT WAS ANGRY AND STATING SHE DIDNT TRUST US TO SEE HER AND That SHE WANTED TO SPEAK WITH THE DRY CLEANING CHECKER. I accompanied Serafina THE DRY CLEANING CHECKER WHILE PT EXPLAINED SITUATION. Pt STILL SHOWED ANGER TO DRY CLEANING CHECKER SAYING THAT SHE CAN LEAVE AND GO TO HER PROVIDER IN THE MORNING , DRY CLEANING CHECKER ASKED HER IF SHE WANTED TO BE SEEN BY OUR DR AND PT AGAIN STATED SHE DIDNT TRUST US AND ASKED IF WE UNDERSTOOD BRUNEIAN SHE SAID SHE WAS LEAVING NOW GIVE ME MY FORM . FORM WAS BROUGHT TO PT BUT SHE HAD ALREADY DEPARTED ROOM.
== END 2024-05-25 20:55 | disposition left against medical advice (07) ==
PROVIDERS: Emergency Provider Emergency Medicine
DX: Z53.21 Procedure and treatment not carried out due to patient leaving prior to being seen by health care provider (principal)
CPT/HCPCS: 99281

== ENCOUNTER → 2024-06-05 | Outpatient (CLI) | payer MEDICAID, SELFPAY ==
--- NOTE | 2024-06-05 15:26 | XR_ITS ---
Examination: CT brain head without contrast. 2-D sagittal coronal reconstructions Date and time of exam:June 05, 2024 1551 hours INDICATIONS: Loss of consciousness episode 4 days ago CTDI: vol (mGy):47.4 DLP: (mGycm):887 Technique: Multiple CT axial sections of the brain have been obtained, 5 mm slice thickness. Contrast has not been administered. 2-D sagittal, coronal reconstructions have been obtained Low dose protocols were performed. One or more of the following dose reduction techniques were used; automated exposure control, adjustment of the mA and/or KV according to patient size, use of iterative reconstruction technique. Findings: No significant ventricular enlargement. Intra-axial or extra-axial hemorrhage density is not seen. No mass effect or midline shift Basal cisterns are not remarkable. Fourth ventricle is midline. Cranial vault intact. Impression: Negative for acute hemorrhage, mass effect or midline shift
== END | disposition home or self-care (01) ==
PROVIDERS: PCP Nurse Practitioner; Referring Provider Nurse Practitioner; Visit Provider Nurse Practitioner
DX: S06.0X1D Concussion with loss of consciousness of 30 minutes or less, subsequent encounter (principal); X58.XXXD Exposure to other specified factors, subsequent encounter; H53.8 Other visual disturbances; R42 Dizziness and giddiness
CPT/HCPCS: 70450

== ENCOUNTER → 2024-07-25 | Outpatient (CLI) | payer MEDICAID, SELFPAY ==
--- NOTE | 2024-07-25 13:46 | XR_ITS ---
Examination: Shoulder,left, 3 views Technique: Shoulder AP internal rotation, AP external rotation, Y view shoulder, 3 views Exam date and time :July 25, 2024 1354 hours INDICATIONS: Left shoulder pain months. FINDINGS: Moderate osteopenia Moderate narrowing glenohumeral joint No shoulder fracture or dislocation IMPRESSION: Moderate narrowing glenohumeral joint
--- NOTE | 2024-07-25 13:46 | XR_ITS ---
Examination: Lumbar spine 3 views Technique one AP lateral coned lateral lower lumbar spine 3 views Date and time: July 25, 2024 1415 hours INDICATIONS: Lower back pain months. FINDINGS: Lumbar levoscoliosis 10 degrees No lumbar fracture No spondylolisthesis. Mild lumbar spondylosis. Advanced degenerative disc disease L5-S1 IMPRESSION: Advanced degenerative disc disease L5-S1
--- NOTE | 2024-07-25 13:46 | XR_ITS ---
Examination: Foot, left, 3 views Technique: AP, oblique, lateral views foot, 3 views Date and time of exam: July 25, 2024 1354 hours INDICATIONS: Foot pain this month. FINDINGS: Moderate bunion deformity Moderate osteoarthritis first metatarsophalangeal joint No fracture 6 mm plantar bony calcaneal spur IMPRESSION: Moderate bunion deformity with moderate osteoarthritis first metatarsophalangeal joint
--- NOTE | 2024-07-25 13:47 | XR_ITS ---
Examination: Bilateral hips, AP pelvis, 5 views Technique: AP, lateral views both hips, AP pelvis, 5 views Exam date and time: July 25, 2024 1354 hours INDICATIONS: Bilateral hip pain months. FINDINGS: Mild to moderate bilateral hip osteoarthritis No hip or pelvic fracture No avascular necrosis IMPRESSION: Mild to moderate bilateral hip osteoarthritis
== END | disposition home or self-care (01) ==
LOC: CDIM 13:40
PROVIDERS: PCP Family Medicine; Referring Provider Nurse Practitioner; Visit Provider Nurse Practitioner
DX: M21.612 Bunion of left foot (principal); M19.072 Primary osteoarthritis, left ankle and foot; M16.0 Bilateral primary osteoarthritis of hip; M25.812 Other specified joint disorders, left shoulder; M51.370 Other intervertebral disc degeneration, lumbosacral region with discogenic back pain only
CPT/HCPCS: 72100; 73030; 73522; 73630

== ENCOUNTER 2025-01-06 09:14 | Emergency (ER) | payer MEDICAID, SELFPAY ==
[2025-01-06 09:19] VITALS: BP 122/61; PULSE 76; RESP 18; TEMP 37.2; O2SAT 98
[2025-01-06 09:20] VITALS: PULSE 95; O2SAT 97; BMI 23.8
--- NOTE | 2025-01-06 10:23 | PD.EDSOB ---
ED SOB =RME/HPI General Chief Complaint: Shortness of Breath/Dyspnea Stated Complaint: SOB Arrival date/time: 01/06/25 09:14 Limitations: no limitations RME / HPI RME / HPI Narrative: DR. LEE MAIN ED EVALUATION: 54-year-old female presents with 2 days of left sided throat and mouth pain. She reports associated change in voice and difficulty swallowing. She denies fever, shortness of breath, rash, or chest pain. No other complaints. Past medical history includes COPD, seizures, and psychiatric and drug use history. Related Data Home Medications ?Medication ?Instructions ?Recorded ?Confirmed tiotropium bromide 18 mcg capsule 18 mcg inhalation QDAY 02/22/18 07/18/20 with inhalation device (Spiriva with HandiHaler) albuterol sulfate 2.5 mg/3 mL 2.5 mg inhalation Q12H PRN sob 07/18/20 07/18/20 (0.083 %) solution for nebulization albuterol sulfate 90 mcg/actuation 2 puff inhalation Q6H PRN sob 07/18/20 07/18/20 aerosol inhaler (Ventolin HFA) amitriptyline 150 mg tablet 150 mg PO BID 07/18/20 07/18/20 beclomethasone dipropionate 40 1 inh inhalation QDAY 07/18/20 07/18/20 mcg/actuation HFA breath activated aerosol (Qvar RediHaler) fcdiegolvp-dwgsqlumcgcfn-[id number] 1 tab PO QDAY 07/18/20 07/18/20 50 mg-325 mg-40 mg tablet gabapentin 300 mg capsule 300 mg PO TID 07/18/20 07/18/20 levetiracetam 750 mg tablet 1,500 mg PO BID 07/18/20 07/18/20 loratadine 10 mg tablet (Allergy 10 mg PO QDAY 07/18/20 07/18/20 Relief (loratadine)) naproxen 500 mg tablet 500 mg PO QDAY PRN Pain 07/18/20 07/18/20 nicotine 21 mg/24 hr daily 21 mg topical QDAY 07/18/20 07/18/20 transdermal patch pantoprazole 40 mg tablet,delayed 40 mg PO BID 07/18/20 07/18/20 release pregabalin 75 mg capsule 75 mg PO TID 07/18/20 07/18/20 Previous Rx's ?Medication ?Instructions ?Recorded hydrocodone 5 mg-acetaminophen 325 0.5 tab PO BID #10 tabs 11/16/21 mg tablet famotidine 20 mg tablet (Pepcid) 20 mg PO QDAY #7 tabs 06/24/22 bacitracin 500 unit/gram topical 1 applic topical Q8H #14 grams 12/28/22 ointment acetaminophen 325 mg tablet (Pain 650 mg (2 x 325 mg) PO QID PRN 02/19/23 Relief (acetaminophen)) pain #20 tabs acetaminophen 500 mg tablet 500 mg PO Q6H PRN pain #30 tabs 04/19/23 (Acetaminophen Pain Relief) ibuprofen 600 mg tablet 600 mg PO Q6H #30 tabs 04/26/24 levofloxacin 750 mg tablet 750 mg PO Q24H 10 days #10 tabs 01/06/25 Allergies Allergy/AdvReac Type Severity Reaction Status Date / Time clindamycin Allergy Severe VOMITING Verified 05/25/24 17:32 Penicillins Allergy Severe SZ'S Verified 05/25/24 17:32 Sulfa (Sulfonamide Allergy Severe SZ Verified 05/25/24 17:32 Antibiotics) ampicillin Allergy Seizure Verified 05/25/24 17:32 doxycycline Allergy Dizziness Verified 05/25/24 17:32 codeine AdvReac Severe VOMITING Verified 05/25/24 17:32 lorazepam AdvReac Severe SEIZURE Verified 05/25/24 17:32 sertraline AdvReac Severe SEIZURES Verified 05/25/24 17:32 Review of Systems Review of Systems Systems Reviewed: All systems reviewed, normal except as documented Past Medical History Past Medical History NEUROLOGIC: Positive Neurological Disorders, Seizures, Head Trauma and Traumatic Brain Injury CARDIAC: Positive Cardiac Disorders, Myocardial Infarction and Atrial Fibrillation; Negative Congestive Heart Failure RESPIRATORY: Positive Chronic Obstructive Pulmonary Disease (COPD), Asthma and Emphysema GASTROINTESTINAL: Positive Gastrointestinal Disorders, Gastrointestinal Bleed and Hiatal Hernia GENITOURINARY: Negative Renal Disease MUSCULOSKELETAL: Positive Musculoskeletal Disorders ENT: Positive Head Trauma ENDOCRINE: Negative Diabetes Mellitus Type 1 or Diabetes Mellitus Type 2 HEMATOLOGIC: Negative Sickle Cell Disease PSYCHO/SOCIAL: Positive Anxiety Social History SMOKING STATUS: Unknown if ever smoked SUBSTANCE USE: does not use ED Exam General Limitations: Present no limitations General appearance: Present alert and in no apparent distress Head Head exam: Present atraumatic, normocephalic and normal inspection Eye Eye exam: Present normal appearance, PERRL and EOMI ENT ENT exam: Present normal exam, normal oropharynx, mucous membranes moist and other (edentulous, tender on the left side of the throat, no uvular deviation, no swelling or mass in the mouth or throat) Neck Neck exam: Present normal inspection, full ROM and trachea midline Chest Chest inspection: Present normal inspection and symmetric chest wall rise Respiratory Respiratory exam: Present normal lung sounds bilaterally Cardiovascular Cardiovascular exam: Present regular rate, normal rhythm and normal heart sounds Abdominal Exam Abdominal exam: Present soft and normal bowel sounds Extremities Exam Extremities exam: Present normal inspection and full ROM Back Exam Back exam: Present normal inspection and full ROM Neurological Exam Neurological exam: Present alert, oriented X3 and CN II-XII intact Psychiatric Psychiatric exam: Present normal affect and normal mood Skin Skin exam: Present warm, dry, intact and normal color Course Quality Measures none Orders Category Date Time Status CT Screening NOW Care 01/06/25 10:25 Active EKG (ED ONLY) *Do not use* NOW Care 01/06/25 09:31 Completed MRI Screening NOW Care 01/06/25 14:[address] soft tissue neck w con Stat Exams 01/06/25 10:25 Completed CXRP [XR chest 1V portable] Stat Exams 01/06/25 10:25 Completed EKG (ED Only) Stat Exams 01/06/25 09:30 Ordered MR cervical spine wo/w con Stat Exams 01/06/25 Ordered Blood Culture (Lab) Stat Lab 01/06/25 09:30 Received CBC [CBC] Stat Lab 01/06/25 09:30 Completed CMP [Comprehensive Metabolic Panel] Stat Lab 01/06/25 09:30 Completed CRP [C-Reactive Protein] Stat Lab 01/06/25 09:30 Completed ESR [Sed Rate (ESR)] Stat Lab 01/06/25 09:30 Received Procalcitonin Stat Lab 01/06/25 09:30 Completed Troponin I Stat Lab 01/06/25 09:30 Completed Cefepime Inj [Maxipime Inj] 2 gm Med 01/06/25 10:26 Active SODIUM CHLORIDE 0.9% (Popper) [Ns 0.9% (P)] 50 ml IV Q12HR Dexamethasone Inj [Decadron Inj] Med 01/06/25 10:45 Discontinued 10 mg IVP X1 ONE Dexamethasone Inj [Decadron Inj] 10 mg Med 01/06/25 10:25 Discontinued Sodium Chloride 0.9% [Ns] 100 ml IV X1 Reevaluation(s) Reevaluation #1: This patient is choosing to leave against medical advice. I have personally explained to the patient that choosing to do so may result in permanent bodily harm or . I discussed a great length that without further evaluation and monitoring there may be unforeseen circumstances and deterioration causing permanent bodily harm or as a result of their choice. The patient is alert, oriented and competent at this time. The patient states that they are aware of the serious risks as explained, but they continue to wish to leave against medical advice. In light of their decision to leave AMA, follow-up has been arranged and they are aware of the importance of following up as instructed. They have been advised that they should return to the ED immediately if they change their mind at any time, or if their condition begins to change or worsen. Time: 15:13 Vital Signs Vital signs: Vital Signs Temperature 98.9 F 01/06/25 09:19 Pulse Rate 76 01/06/25 09:19 Respiratory Rate 18 01/06/25 09:19 Blood Pressure 122/61 01/06/25 09:19 Pulse Oximetry (%) 98 01/06/25 09:19 Oxygen Delivery Method Room Air 01/06/25 09:19 Shortness of Breath / Dyspnea MDM Narrative MDM Narrative:: IDana am scribing for and in the presence of Dr. Lee. 54-year-old female with left sided throat and mouth pain with voice change and difficulty swallowing for 2 days. Exam normal except left throat tenderness without swelling or uvular deviation. Differential diagnoses include lymphadenitis, pharyngitis, and early peritonsillar process. Impression is left sided neck and throat pain. Plan is for CT scan, steroids, and reevaluation. Patient stable for continued monitoring. 1213: CXR and labs are back normal, no acute findings. CT is still pending. 1401: CT shows that there is mild prevertebral soft tissue prominence C5-T1 level and MRI cervical spine is recommended. MRI ordered. 1513: Patient has decided to leave AMA. MRI was still pending. Patient data External records reviewed:: [facility] previous records Clinical information provided by:: patient Social determinants that could affect healthcare access:: substance use Patient has the following chronic illnesses:: Past medical history includes COPD, seizures, and psychiatric and drug use history. How is presenting disease/condition affected by chronic disease/condition?: uneffected by Evaluation data The following diagnostics were reviewed and interpreted by me:: lab results and radiology exam(s) Lab and/or radiology exams considered but not ordered:: none Interpretation Summary: See MDM narrative above. RADIOLOGY Procedure(s): XR chest 1V portable Accession Number(s): [id number] cc: Wilber Delaney MD; Harlan Omalley MD; NO PRIMARY/FAMILY,PHYSICIAN~ EXAMINATION: AP chest single view TECHNIQUE: Portable upright AP chest single view Date and time: January 06, 2025, 10:29 a.m., comparison March 01, 2024 INDICATIONS: Shortness of breath altered mental status today. FINDINGS: Normal heart size Lungs are clear. Osseous structures are intact IMPRESSION: No active disease Dictated By: Harlan Omalley MD Procedure(s): CT soft tissue neck w con Accession Number(s): [id number] cc: Wilber Delaney MD; Harlan Omalley MD; NO PRIMARY/FAMILY,PHYSICIAN~ Examination: CT soft tissue neck, with intravenous contrast. 2-D coronal reconstructions. 2-D sagittal reconstructions. Date and time of exam : January 06, 2025, 11:40 a.m. INDICATIONS: Left neck swelling and pain since yesterday. CTDI: vol (mGy): 10.6 DLP: (mGycm): 310 Technique: 1.25 mm axial sections of the neck of the obtained. Coronal and sagittal reconstructions have been obtained. Intravenous contrast administered 50 cc [id number]. Low dose protocols were performed. One or more of the following dose reduction techniques were used; automated exposure control, adjustment of the mA and/or KV according to patient size, use of iterative reconstruction technique. Findings: Maxillary antra are clear Symmetrical nasopharynx oropharynx No tonsillar abscess Symmetrical parotid glands No pathologic carotid triangle lymphadenopathy The larynx appears normal Symmetrical thyroid lobes Normal epiglottis There is mild prevertebral soft tissue prominence C5-T1 level sagittal image 41 Advanced degenerative disc disease C5-C6 IMPRESSION: Advanced degenerative disc disease C5-C6 There is mild prevertebral soft tissue prominence C5-T1 level, clinical correlation advised If early precervical vertebral body abscess is a clinical consideration, suggest MRI cervical spine follow-up pre and post intravenous contrast Dictated By: Harlan Omalley MD Medications / Prescriptions Medications or Prescriptions considered but not ordered:: none Medication administrations:: Medication Administration History Cefepime HCl 2 gm/ Sodium (Chloride) 50 mls @ 100 mls/hr IV Q12HR FLAVIO Stop: 01/13/25 10:25 Last Infusion: 01/06/25 11:09 Dose: Infused Documented By: Admin: 01/06/25 10:39 Dose: 100 mls/hr Documented By: EF Discontinued Medications Dexamethasone Sodium Phosphate (Dexamethasone Sod Phos Inj 10 Mg/Ml Vial) 10 mg IVP X1 ONE Stop: 01/06/25 10:46 Last Admin: 01/06/25 10:40 Dose: 10 mg Documented By: EF Dexamethasone Sodium Phosphate (10 mg/ Sodium Chloride) 101 mls @ 101 mls/hr IV X1 ONE Stop: 01/06/25 10:26 Last Admin: 01/06/25 10:44 Dose: Not Given Documented By: EF Non-Admin Reason: Cancelled by Provider see above Consultations Consultation(s) initiated? (list below): No Diagnosis Shortness of Breath Differential Diagnosis: other (lymphadenitis, pharyngitis, and early peritonsillar process) Most likely diagnosis given after review of the tests above:: Paravertebral mass Admission Indicated Admission indicated?: not indicated Explain why admission is indicated or not indicated:: This patient is choosing to leave against medical advice. I have personally explained to the patient that choosing to do so may result in permanent bodily harm or . I discussed a great length that without further evaluation and monitoring there may be unforeseen circumstances and deterioration causing permanent bodily harm or as a result of their choice. The patient is alert, oriented and competent at this time. The patient states that they are aware of the serious risks as explained, but they continue to wish to leave against medical advice. In light of their decision to leave AMA, follow-up has been arranged and they are aware of the importance of following up as instructed. They have been advised that they should return to the ED immediately if they change their mind at any time, or if their condition begins to change or worsen. Admission Request Was there a request for admission?: No Disposition Plan Disposition Plan: other (specify) (AMA) Discharge Plan Plan Patient Disposition: Left Against Medical Advice Prescriptions/Referrals Prescriptions/Med Rec: New levofloxacin 750 mg tablet 750 mg PO Q24H 10 Days Qty: 10 0RF No Action Spiriva with HandiHaler 18 mcg Capsule, W/Inhalation Device 18 mcg INHALATION QDAY albuterol sulfate 2.5 mg /3 mL (0.083 %) solution for nebulization 2.5 mg inhalation Q12H PRN (Reason: sob) amitriptyline 150 mg tablet 150 mg PO BID psivqhaelq-fotpouqcawfss-fiwb 50-325-40 mg tablet 1 tab PO QDAY pantoprazole 40 mg tablet,delayed release (DR/EC) 40 mg PO BID nicotine 21 mg/24 hr patch 24 hour 21 mg TOPICAL QDAY gabapentin 300 mg capsule 300 mg PO TID levetiracetam 750 mg tablet 1,500 mg PO BID albuterol sulfate [Ventolin HFA] 90 mcg/actuation Hfa Aerosol Inhaler 2 puff INHALATION Q6H PRN (Reason: sob) loratadine [Allergy Relief (loratadine)] 10 mg tablet 10 mg PO QDAY naproxen 500 mg tablet 500 mg PO QDAY PRN (Reason: Pain) pregabalin 75 mg capsule 75 mg PO TID Qvar RediHaler 40 mcg/actuation HFA aerosol breath activated 1 inh inhalation QDAY famotidine [Pepcid] 20 mg tablet 20 mg PO QDAY Qty: 7 0RF bacitracin 500 unit/gram ointment 1 applic topical Q8H Qty: 14 0RF hydrocodone-acetaminophen 5-325 mg tablet 0.5 tab PO BID MDD 1 Qty: 10 0RF acetaminophen [Pain Relief (acetaminophen)] 325 mg tablet 650 mg PO QID PRN (Reason: pain) Qty: 20 0RF acetaminophen [Acetaminophen Pain Relief] 500 mg tablet 500 mg PO Q6H PRN (Reason: pain) Qty: 30 0RF ibuprofen 600 mg tablet 600 mg PO Q6H Qty: 30 0RF Referrals: No Primary/Family,Physician [Primary Care Provider] - In 1 week Problem List Clinical Impression: Paravertebral mass Patient/Caregiver Discharge Instructions Print Language: Persian
[2025-01-06] MEDS: CEFEPIME INJ 2 GM in SODIUM CHLORIDE 0.9% (Popper) 50 ML IV (10:39)
[2025-01-06] MEDS: DEXAMETHASONE SOD PHOS INJ 10 MG/ML VIAL IVP (10:40)
[2025-01-06 10:59] VITALS: BP 128/78; PULSE 74; RESP 15; TEMP 36.6; O2SAT 95
[2025-01-06 11:03] LABS: Basophils # (Auto) 0.1 Thou/mm3 (0.0-0.2); Basophils % (Auto) 1 % (0-2.5); Eosinophils # (Auto) 0.2 Thou/mm3 (0.0-0.5); Eosinophils % (Auto) 2 % (0-10); Hematocrit 38.7 % (36.0-46.0); Hemoglobin 13.2 g/dL (12.0-16.0); Immature Granulocytes Auto 0.03 Thou/mm3 (0.00-0.00); Lymphocytes # (Auto) 3.2 Thou/mm3 (1.0-4.8); Lymphocytes % (Auto) 33 % (10-50); Mean Corpuscular HGB Conc 34.1 g/dl (31.0-37.0); Mean Corpuscular Hemoglobin 31.4 pg (25.0-35.0); Mean Corpuscular Volume 92 fL (80-100); Monocytes # (Auto) 0.8 Thou/mm3 (0.0-0.8); Monocytes % (Auto) 9 % (0-12); Neutrophils # (Auto) 5.3 Thou/mm3 (1.8-7.7); Neutrophils % (Auto) 56 % (37-80); Nucleated Red Blood Cell # 0.00 Thou/mm3 (0.00-0.00); Nucleated Red Blood Cell % 0 /100 WBC (0); Platelet Count 287 Thou/mm3 (140-440); RDW Standard Deviation 42.9 fL (36.4-46.3); Red Blood Count 4.21 Miln/mm3 (4.00-5.20); White Blood Count 9.6 Thou/mm3 (3.6-11.0)
[2025-01-06 11:23] LABS: Alanine Aminotransferase 11 U/L (10-49); Albumin, Serum 4.9 gm/dL (3.5-5.0); Albumin/Globulin Ratio 2.1 (1.2-2.2); Alkaline Phosphatase 93 U/L (46-116); Anion Gap 7 (7-16); Aspartate Amino Transferase 16 U/L (0-34); BUN/Creatinine Ratio 10 Ratio (12-20); Bilirubin,Total 0.4 mg/dL (0.3-1.2); Blood Urea Nitrogen 7 mg/dL (9-23); C-Reactive Protein 0.6 mg/dL (0.0-0.9); Calcium 9.2 mg/dL (8.3-10.6); Calcium (Corrected) 9.2 mg/dL (8.5-10.1); Carbon Dioxide 26.6 mMol/L (20.0-31.0); Chloride 109 mMol/L (98-107); Creatinine (Component) 0.7 mg/dL (0.6-1.3); Estimated Creatinine Clearance 91.4 mL/min (>60); Globulin 2.3 gm/dL (2.3-3.5); Glucose 95 mg/dL (74-106); Osmolality,Calculated 282 (275-295); Potassium 4.3 mMol/L (3.4-5.1); Procalcitonin 0.06 ng/ml (0.0-0.49); Sodium 143 mMol/L (136-145); Total Protein 7.2 gm/dL (5.7-8.2); Troponin I < 0.002 ng/mL (0.0-0.045); eGFR > 60 See Note
[2025-01-06 12:00] VITALS: BP 99/65; PULSE 64; RESP 18; TEMP 36.4; O2SAT 98
[2025-01-06 14:09] VITALS: BP 105/55; PULSE 55; RESP 16; TEMP 36.3; O2SAT 99
--- NOTE | 2025-01-06 15:17 | PC.NURSE ---
patient leaving AMA informed of risks with Dr lind such as worsening symptoms, potential disabilty and in worse case . patient stated no longer wanting to wait and will be following up with her primary doctor in the morning. encouraged patient to return if she changes her mind or any worsening symptoms
[2025-01-06 15:27] LABS: Sed Rate (ESR) 20 mm/hr (0-30)
== END 2025-01-06 15:21 | disposition left against medical advice (07) ==
PROVIDERS: Emergency Provider Emergency Medicine
DX: M48.8X3 Other specified spondylopathies, cervicothoracic region (principal); R06.02 Shortness of breath; Z53.29 Procedure and treatment not carried out because of patient's decision for other reasons
CPT/HCPCS: 36415; 70491; 71045; 80053; 84145; 84484; 85025; 85652; 86140; 87040; 87077; 87186; 93005; 96365; 96375; 99284; A4649; J0692; J1100; J7050; Q9967

== ENCOUNTER 2025-01-08 19:26 | Emergency (ER) | payer MEDICAID, SELFPAY ==
[2025-01-08 20:42] VITALS: BP 114/62; PULSE 63; RESP 18; TEMP 36.8; O2SAT 99
--- NOTE | 2025-01-08 21:05 | XR_ITS ---
Examination: Duplex scan of the lower extremity, unilateral left Date and time of exam: January 08, 2025, 9:20 p.m. INDICATIONS: Severe groin and leg pain today Technique: Duplex scan of the extremity veins using B-mode/grayscale imaging and Doppler spectral analysis and color flow Attention is directed to internal echogenicity, compression and augmentation involving these veins, color flow assessment, spectral analysis Findings: Major deep venous structures in the extremity demonstrate normal course and caliber. There is no evidence of deep vein thrombosis. Normal color flow and spectral analysis Impression: Negative for DVT..
[2025-01-08 21:35] LABS: Basophils # (Auto) 0.1 Thou/mm3 (0.0-0.2); Basophils % (Auto) 1 % (0-2.5); Eosinophils # (Auto) 0.2 Thou/mm3 (0.0-0.5); Eosinophils % (Auto) 1 % (0-10); Hematocrit 39.4 % (36.0-46.0); Hemoglobin 13.3 g/dL (12.0-16.0); Immature Granulocytes Auto 0.04 Thou/mm3 (0.00-0.00); Lymphocytes # (Auto) 5.0 Thou/mm3 (1.0-4.8); Lymphocytes % (Auto) 32 % (10-50); Mean Corpuscular HGB Conc 33.8 g/dl (31.0-37.0); Mean Corpuscular Hemoglobin 31.4 pg (25.0-35.0); Mean Corpuscular Volume 93 fL (80-100); Monocytes # (Auto) 1.2 Thou/mm3 (0.0-0.8); Monocytes % (Auto) 7 % (0-12); Neutrophils # (Auto) 9.4 Thou/mm3 (1.8-7.7); Neutrophils % (Auto) 59 % (37-80); Nucleated Red Blood Cell # 0.00 Thou/mm3 (0.00-0.00); Nucleated Red Blood Cell % 0 /100 WBC (0); Platelet Count 305 Thou/mm3 (140-440); RDW Standard Deviation 43.9 fL (36.4-46.3); Red Blood Count 4.23 Miln/mm3 (4.00-5.20); White Blood Count 15.9 Thou/mm3 (3.6-11.0)
[2025-01-08 21:52] LABS: Alanine Aminotransferase 16 U/L (10-49); Albumin, Serum 5.1 gm/dL (3.5-5.0); Albumin/Globulin Ratio 1.8 (1.2-2.2); Alkaline Phosphatase 89 U/L (46-116); Anion Gap 7 (7-16); Aspartate Amino Transferase 17 U/L (0-34); BUN/Creatinine Ratio 13 Ratio (12-20); Bilirubin,Total 0.3 mg/dL (0.3-1.2); Blood Urea Nitrogen 9 mg/dL (9-23); Calcium 9.6 mg/dL (8.3-10.6); Calcium (Corrected) 9.6 mg/dL (8.5-10.1); Carbon Dioxide 29.3 mMol/L (20.0-31.0); Chloride 106 mMol/L (98-107); Creatinine (Component) 0.7 mg/dL (0.6-1.3); Globulin 2.9 gm/dL (2.3-3.5); Glucose 98 mg/dL (74-106); Osmolality,Calculated 281 (275-295); Potassium 4.1 mMol/L (3.4-5.1); Sodium 142 mMol/L (136-145); Total Protein 8.0 gm/dL (5.7-8.2); eGFR > 60 See Note
[2025-01-09 01:05] LABS: Path Review Blood Smear Sent to Pathologist
--- NOTE | 2025-01-09 01:13 | PD.EDADULT ---
ED General RME/HPI General Chief complaint: General Adult/Misc Complain Stated complaint: LEFT GROIN SWELLING AND PAIN Time Seen by Provider: 01/08/25 19:33 Arrival date/time: This is a case of 54-year-old female with history of seizure GERD came in in the emergency room due to left groin pain and swelling for 2 days denies any injury or trauma denies any abdominal pain nausea vomiting denies any urinary symptoms patient was here 01/06/2025 where she was treated with sore throat mild pain and hoarseness of the voice CT scan showed a right cervical vertebral body possible thus the doctor ordered to have MRI patient left AGAINST MEDICAL ADVICE and stated that she went to his primary care physician where she was prescribed doxycycline for the possible persistence of the symptoms this patient decided to sought consult here in the emergency room Limitations: no limitations Related Data Home Medications ?Medication ?Instructions ?Recorded ?Confirmed tiotropium bromide 18 mcg capsule 18 mcg inhalation QDAY 02/22/18 07/18/20 with inhalation device (Spiriva with HandiHaler) albuterol sulfate 2.5 mg/3 mL 2.5 mg inhalation Q12H PRN sob 07/18/20 07/18/20 (0.083 %) solution for nebulization albuterol sulfate 90 mcg/actuation 2 puff inhalation Q6H PRN sob 07/18/20 07/18/20 aerosol inhaler (Ventolin HFA) amitriptyline 150 mg tablet 150 mg PO BID 07/18/20 07/18/20 beclomethasone dipropionate 40 1 inh inhalation QDAY 07/18/20 07/18/20 mcg/actuation HFA breath activated aerosol (Qvar RediHaler) ygocaginck-hnhvrlbbbenfj-lydxlelo 1 tab PO QDAY 07/18/20 07/18/20 50 mg-325 mg-40 mg tablet gabapentin 300 mg capsule 300 mg PO TID 07/18/20 07/18/20 levetiracetam 750 mg tablet 1,500 mg PO BID 07/18/20 07/18/20 loratadine 10 mg tablet (Allergy 10 mg PO QDAY 07/18/20 07/18/20 Relief (loratadine)) naproxen 500 mg tablet 500 mg PO QDAY PRN Pain 07/18/20 07/18/20 nicotine 21 mg/24 hr daily 21 mg topical QDAY 07/18/20 07/18/20 transdermal patch pantoprazole 40 mg tablet,delayed 40 mg PO BID 07/18/20 07/18/20 release pregabalin 75 mg capsule 75 mg PO TID 07/18/20 07/18/20 Previous Rx's ?Medication ?Instructions ?Recorded hydrocodone 5 mg-acetaminophen 325 0.5 tab PO BID #10 tabs 11/16/21 mg tablet famotidine 20 mg tablet (Pepcid) 20 mg PO QDAY #7 tabs 06/24/22 bacitracin 500 unit/gram topical 1 applic topical Q8H #14 grams 12/28/22 ointment acetaminophen 325 mg tablet (Pain 650 mg (2 x 325 mg) PO QID PRN 02/19/23 Relief (acetaminophen)) pain #20 tabs acetaminophen 500 mg tablet 500 mg PO Q6H PRN pain #30 tabs 04/19/23 (Acetaminophen Pain Relief) ibuprofen 600 mg tablet 600 mg PO Q6H #30 tabs 04/26/24 levofloxacin 750 mg tablet 750 mg PO Q24H 10 days #10 tabs 01/06/25 Allergies Allergy/AdvReac Type Severity Reaction Status Date / Time clindamycin Allergy Severe VOMITING Verified 01/08/25 19:27 Penicillins Allergy Severe SZ'S Verified 01/08/25 19:27 Sulfa (Sulfonamide Allergy Severe SZ Verified 01/08/25 19:27 Antibiotics) ampicillin Allergy Seizure Verified 01/08/25 19:27 doxycycline Allergy Dizziness Verified 01/08/25 19:27 codeine AdvReac Severe VOMITING Verified 01/08/25 19:27 lorazepam AdvReac Severe SEIZURE Verified 01/08/25 19:27 sertraline AdvReac Severe SEIZURES Verified 01/08/25 19:27 Review of Systems Review of Systems Systems Reviewed: All systems reviewed, normal except as documented Constitutional Constitutional: Reports system reviewed and no additional complaints, except as documented and Reports as per HPI Cardiovascular Cardiovascular: Reports system reviewed and no additional complaints, except as documented and Reports as per HPI Respiratory Respiratory: Reports system reviewed and no additional complaints, except as documented and Reports as per HPI Gastrointestinal Gastrointestinal: Reports system reviewed and no additional complaints, except as documented and Reports as per HPI Neurologic Neurologic: Reports system reviewed and no additional complaints, except as documented and Reports as per HPI Past Medical History Past Medical History NEUROLOGIC: Positive Neurological Disorders, Seizures, Head Trauma and Traumatic Brain Injury CARDIAC: Positive Cardiac Disorders, Myocardial Infarction and Atrial Fibrillation; Negative Congestive Heart Failure RESPIRATORY: Positive Chronic Obstructive Pulmonary Disease (COPD), Asthma and Emphysema GASTROINTESTINAL: Positive Gastrointestinal Disorders, Gastrointestinal Bleed and Hiatal Hernia GENITOURINARY: Negative Renal Disease MUSCULOSKELETAL: Positive Musculoskeletal Disorders ENT: Positive Head Trauma ENDOCRINE: Negative Diabetes Mellitus Type 1 or Diabetes Mellitus Type 2 HEMATOLOGIC: Negative Sickle Cell Disease PSYCHO/SOCIAL: Positive Anxiety Social History SMOKING STATUS: Former smoker SUBSTANCE USE: does not use ED Exam General Limitations: Present no limitations General appearance: Present alert, in no apparent distress and other (Patient is awake alert oriented not in distress nontoxic looking well-hydrated well no) Head Head exam: Present atraumatic, normocephalic and normal inspection Eye Eye exam: Present normal appearance, PERRL and EOMI ENT ENT exam: Present normal exam, normal oropharynx and mucous membranes moist Neck Neck exam: Present normal inspection, full ROM and trachea midline; Absent tenderness, meningismus, lymphadenopathy or thyromegaly Chest Chest inspection: Present normal inspection and symmetric chest wall rise; Absent tenderness Respiratory Respiratory exam: Present normal lung sounds bilaterally and other (No rhonchi no crackles); Absent respiratory distress, wheezes, stridor, accessory muscle use or prolonged expiratory phase Cardiovascular Cardiovascular exam: Present regular rate, normal rhythm and normal heart sounds; Absent bradycardia, tachycardia, irregular rhythm, systolic murmur or diastolic murmur Abdominal Exam Abdominal exam: Present soft, normal bowel sounds and other (Moderate tenderness on the left groin with mild swelling no abscess no cellulitis no redness); Absent distention, tenderness, guarding, rebound, rigidity, diminished bowel sounds, hyperactive bowel sounds, hypoactive bowel sounds, organomegaly, incision, psoas sign, obturator sign, Navarro's sign, Rovsing's sign, tenderness at McBurney's Point, ascites, mass, bruit, pulsatile mass, hernia or scar Extremities Exam Extremities exam: Present normal inspection and full ROM Expanded Lower Extremity Exam Hip/Pelvis exam: Present normal inspection, full ROM and pelvis stable; Absent tenderness, swelling, abrasion, laceration, ecchymosis, deformity, crepitus, dislocation, erythema, external rotation, internal rotation or shortening Upper leg exam: Present normal inspection and full ROM; Absent tenderness, swelling, abrasion, laceration, ecchymosis, deformity, crepitus, dislocation or erythema Back Exam Back exam: Present normal inspection and full ROM Neurological Exam Neurological exam: Present alert, oriented X3, CN II-XII intact, normal gait and reflexes normal; Absent motor sensory deficit Psychiatric Psychiatric exam: Present normal affect and normal mood Skin Skin exam: Present warm, dry, intact, normal color and other (Excellent skin turgor no abscess no celluitis) Course Quality Measures none Orders Category Date Time Status US venous doppler LE LT Stat Exams 01/08/25 21:05 Completed CBC Stat Lab 01/08/25 21:13 Completed CMP [Comprehensive Metabolic Panel] Stat Lab 01/08/25 21:13 Completed HCG Qualitative,Urine Stat Lab 01/08/25 21:05 Ordered Path Review Blood Smear Stat Lab 01/08/25 21:13 Completed Urinalysis Stat Lab 01/08/25 21:05 Ordered Vital Signs Vital signs: Vital Signs Temperature 98.3 F 01/08/25 20:42 Pulse Rate 63 01/08/25 20:42 Respiratory Rate 18 01/08/25 20:42 Blood Pressure 114/62 01/08/25 20:42 Pulse Oximetry (%) 99 01/08/25 20:42 Oxygen Delivery Method Room Air 01/08/25 20:42 Oxygen saturation 99% on O2 2 L nasal cannula Discharge Plan Plan Patient Disposition: Left Against Medical Advice Prescriptions/Referrals Prescriptions/Med Rec: No Action Spiriva with HandiHaler 18 mcg Capsule, W/Inhalation Device 18 mcg INHALATION QDAY albuterol sulfate 2.5 mg /3 mL (0.083 %) solution for nebulization 2.5 mg inhalation Q12H PRN (Reason: sob) amitriptyline 150 mg tablet 150 mg PO BID fpieoebpay-qgtocmjavovvn-digu 50-325-40 mg tablet 1 tab PO QDAY pantoprazole 40 mg tablet,delayed release (DR/EC) 40 mg PO BID nicotine 21 mg/24 hr patch 24 hour 21 mg TOPICAL QDAY gabapentin 300 mg capsule 300 mg PO TID levetiracetam 750 mg tablet 1,500 mg PO BID albuterol sulfate [Ventolin HFA] 90 mcg/actuation Hfa Aerosol Inhaler 2 puff INHALATION Q6H PRN (Reason: sob) loratadine [Allergy Relief (loratadine)] 10 mg tablet 10 mg PO QDAY naproxen 500 mg tablet 500 mg PO QDAY PRN (Reason: Pain) pregabalin 75 mg capsule 75 mg PO TID Qvar RediHaler 40 mcg/actuation HFA aerosol breath activated 1 inh inhalation QDAY famotidine [Pepcid] 20 mg tablet 20 mg PO QDAY Qty: 7 0RF bacitracin 500 unit/gram ointment 1 applic topical Q8H Qty: 14 0RF levofloxacin 750 mg tablet 750 mg PO Q24H 10 Days Qty: 10 0RF hydrocodone-acetaminophen 5-325 mg tablet 0.5 tab PO BID MDD 1 Qty: 10 0RF acetaminophen [Pain Relief (acetaminophen)] 325 mg tablet 650 mg PO QID PRN (Reason: pain) Qty: 20 0RF acetaminophen [Acetaminophen Pain Relief] 500 mg tablet 500 mg PO Q6H PRN (Reason: pain) Qty: 30 0RF ibuprofen 600 mg tablet 600 mg PO Q6H Qty: 30 0RF Referrals: Darrian Benítez([facility]MD [Primary Care Provider, Family Practice] - In 1 week Problem List Clinical Impression: Left groin pain, Left against medical advice Patient/Caregiver Discharge Instructions Education Materials: ED Pain, Acute, Uncertain Cause Additional Instructions: It is very important to see your primary care physician today for further evaluation and treatment of left groin pain it is also important to return in the emergency room for further evaluation and treatment of your left groin pain for possible abscess and or MRI to rule out precervical abscess as stated by the previous provider worsening symptoms or any emergent concern call 911 or go to the nearest emergency room continue doxycycline that was prescribed by the previous provider Print Language: Prydeinig PA/[employer] [place] [employer] Supervising Physician PA/[employer] [place] [employer] Supervising Physician: Dr deepthi koroma [facility] Narrative Sign Out note: This is a case of 54-year-old female with history of seizure GERD came in in the emergency room due to left groin pain and swelling for 2 days denies any injury or trauma denies any abdominal pain nausea vomiting denies any urinary symptoms patient was here 01/06/2025 where she was treated with sore throat mild pain and hoarseness of the voice CT scan showed a right cervical vertebral body possible thus the doctor ordered to have MRI patient left AGAINST MEDICAL ADVICE and stated that she went to his primary care physician where she was prescribed doxycycline for the possible persistence of the symptoms this patient decided to sought consult here in the emergency room physical exam patient is awake alert oriented mildly in distress on oxygen at 2 L nasal cannula with oxygen saturation 99 percent patient have hoarseness of voice abdominal exam is benign nonsurgical no guarding no rebound no rigidity negative psoas negative straight or negative Rovsing's negative McBurney's negative Navarro sign negative CVA tenderness patient have tenderness on palpation on the left groin with mild swelling but no cellulitis no abscess. No redness ROM on the left lower extremities were normal and intact pulses were full and equal capillary refill less than 2 seconds sensory is intact Doppler ultrasound showed negative for DVT blood test showed leukocytosis at 15.4 no anemia kidney and liver function is normal no electrolyte urinalysis still pending I reviewed patient history and imaging and blood test from the previous visit and noted that the patient left AGAINST MEDICAL ADVICE and refused MRI to rule out paravertebral abcsess at this point I cannot totally ruled out that the same thing is getting worse thus I suggest the patient to have CT scan of the abdomen and pelvis which the patient refused patient left against medical advsied and stated that she will go to his primary care physician again for further evaluation and treatment Patient refused CT scan and further treatment the patient decided to leave AGAINST MEDICAL ADVICE I have assessed the patient ability to make an informed decision and feeling that the patient has the capacity to comprehend information regarding the current medical condition and appreciates the impact of the disease or condition and the consequences of the use of action for the treatment including foregoing treatment the patient possess the ability to evaluate all treatment option compared the risk and benefit of his decision she communicate her choices in a consistent mother over time and is able to make rational choices I have explained to the patient further testing treatment and evaluation I would like to perform during the current emergency department visit as well as the possible alternative that could be accomplished in a timely manner I have outlined the possible risks of foregoing any of this intervention and the patient understands and acknowledge the decision to leave may result in undesirable consequences such as permanent disability and or loss of current lifestyle even though leaving AMA is not ideal I have instructed the patient to follow any discharge instruction given take any medication prescribed and resume care as soon as possible with another provider the conversation was witnessed by another member of the emergency department and we clearly communicate that the patient is welcome to return at any time to come continue care at our facility Paravertebral Clinical Information Provided by: patient and spouse Medical Records reviewed [facility] Medical Records additional comments: As reviewed Meds/Rx considered, not ordered None Labs/Rad/Tests considered, not ordered Describe: Reviewed EKG EKG not done Labs Lab(s) Interpretation(s): Reviewed Imaging Imaging interpretation: interpreted by me Imaging Interpretation(s): Reviewed Medication Administration(s) none Diagnosis Diagnoses ruled out and/or further discussions: Left groin pain
== END 2025-01-09 01:29 | disposition left against medical advice (07) ==
PROVIDERS: Nurse Practitioner Family; Emergency Provider Emergency Medicine; PCP Family Medicine
DX: R10.32 Left lower quadrant pain (principal); Z53.29 Procedure and treatment not carried out because of patient's decision for other reasons
CPT/HCPCS: 36415; 80053; 81001; 81025; 85025; 93971; 99283